=== PATIENT | female | born 1965 | race Caucasian/White ===

== ENCOUNTER 2023-06-15 08:53 | Emergency (ER) | payer BC, SELFPAY ==
[2023-06-15 09:04] VITALS: BP 148/83; PULSE 85; RESP 18; TEMP 36.9; O2SAT 97; BMI 21.9
--- NOTE | 2023-06-15 09:13 | XR_ITS ---
The [address] [address] Patient Name: SCOTTIE VENEGAS MRN: [id number] date: 1965 Sex: F Assigned Patient Location: ER Current Patient Location: ER Accession/Order Number: [id number] Exam Date: 06/15/2023 09:40 Report Date: 06/15/2023 09:56 At the request of: JACQUELINE YANG Procedure: XR forearm RT 2V PROCEDURE: XR forearm RT 2V HISTORY: fall, right forearm pain COMPARISON: None. FINDINGS: BONES:No fracture, acute abnormality, or significant arthropathy. SOFT TISSUES:No visible soft tissue swelling. EFFUSION:None visible. OTHER: Negative. XR/XR forearm RT 2V IMPRESSION: 1. No acute bone abnormality or significant degenerative changes. Electronically authenticated by: JARRELL CHANG Date: 06/15/2023 09:56
--- NOTE | 2023-06-15 09:14 | ED.UPPEXIN1 ---
HPI - Extremity Injury (Upper) General Chief Complaint: Extremity Injury, Upper Stated Complaint: UPPER EXTREMITY INJURY, RIGHT ARM Time Seen by Provider: 06/15/23 09:02 Source: patient Mode of arrival: walk-in Limitations: no limitations History of Present Illness HPI narrative: patient tripped at her home two days ago while going up stairs and fell onto a bent right arm, landing with the right forearm striking the step above. She developed some bruising and had pain. She has been taking motrin 400mg TID but the pain has continued. She is right handed and admitted she has been using the right UE as she normally does. Pain is beginning to migrate to toward the right wrist and right elbow Related Data Previous Rx's Medication Instructions Recorded nabumetone 750 mg tablet 750 mg PO BID PRN pain #20 tabs 06/15/23 Allergies Allergy/AdvReac Type Severity Reaction Status Date / Time ciprofloxacin [From Cipro] Allergy Unknown Verified 06/15/23 09:04 cephalexin [From Keflex] AdvReac Unknown Verified 06/15/23 09:04 Exam Narrative Exam Narrative: Nurses note and vital signs reviewed and patient is not hypoxic. afebrile General: The patient appears well and in no apparent distress. Patient is resting comfortably on cart. GCS = 15. Skin: Warm, dry, no pallor noted. Head: Normocephalic, atraumatic Neck: Full ROM and no cervical spinal tenderness. Cardiovascular: normal peripheral perfusion Respiratory: Patient is in no distress, no accessory muscle use, no wheezing Back: No thoracic tenderness to palpation. Musculoskeletal: tenderness to the mid right forearm with small amount of swelling and ecchymosis noted. She has normal range of motion at the right wrist, right elbow and at the forearm including supination, pronation wrist flexion and extension as well as abduction and abduction of the right wrist. no additional sign of long bone fracture. Pulses at femoral, DP, PT, and popliteal were 2+ bilaterally. Moves all four extremities in all modalities with 5/5 strength. 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 Psychiatric: Cooperative Constitutional Vital Signs, click to edit/add: Last Vital Signs Temp 98.4 F 06/15/23 09:04 Pulse 85 06/15/23 09:04 Resp 18 06/15/23 09:04 BP 148/83 H 06/15/23 09:04 Pulse Ox 97 06/15/23 09:04 O2 Del Method Nasal Cannula 06/15/23 09:04 Course Vital Signs Vital signs: Vital Signs Temperature 98.4 F 06/15/23 09:04 Pulse Rate 85 06/15/23 09:04 Respiratory Rate 18 06/15/23 09:04 Blood Pressure 148/83 H 06/15/23 09:04 Pulse Oximetry 97 06/15/23 09:04 Oxygen Delivery Method Nasal Cannula 06/15/23 09:04 Temperature 98.4 F 06/15/23 09:04 Pulse Rate 85 06/15/23 09:04 Respiratory Rate 18 06/15/23 09:04 Blood Pressure 148/83 H 06/15/23 09:04 Pulse Oximetry 97 06/15/23 09:04 Oxygen Delivery Method Nasal Cannula 06/15/23 09:04 MDM - Extremity Injury (Upper) MDM Narrative Medical decision making narrative: the patient was given oral Tylenol and sent for x-rays of the right forearm. Xrays were without fracture or worrisome finding. Patient informed of negative xrays and given reassurance. ED staff applied an paige wrap t the patient's right forearm. She was given prescription for Relafen Imaging Data xr forearm: Radiologist's impression: Patient Name: SCOTTIE VENEGAS MRN: [id number] date: 1965 Sex: F Assigned Patient Location: ER Current Patient Location: ER Accession/Order Number: [id number] Exam Date: 06/15/2023 09:40 Report Date: 06/15/2023 09:56 At the request of: JACQUELINE YANG Procedure: XR forearm RT 2V PROCEDURE: XR forearm RT 2V HISTORY: fall, right forearm pain COMPARISON: None. FINDINGS: BONES:No fracture, acute abnormality, or significant arthropathy. SOFT TISSUES:No visible soft tissue swelling. EFFUSION:None visible. OTHER: Negative. IMPRESSION: 1. No acute bone abnormality or significant degenerative changes. Electronically authenticated by: JARRELL CHANG Date: 06/15/2023 09:56 Discharge Plan Discharge Chief Complaint: Extremity Injury, Upper Clinical Impression: Contusion of forearm, right Patient Disposition: Home, Self-Care Time of Disposition Decision: 10:09 Mode of Transportation: Private Vehicle Prescriptions / Home Meds: New nabumetone 750 mg tablet 750 mg PO BID PRN (Reason: pain) Qty: 20 0RF Instructions: Contusion in Adults (ED) Stand Alone Forms: Portal Instructions Referrals: Chuck Marquez MD [Primary Care Provider] - 1 week
[2023-06-15] MEDS: ACETAMINOPHEN 500 MG TABLET 1000 MG PO (09:19)
== END 2023-06-15 10:14 | disposition home or self-care (01) ==
PROVIDERS: Emergency Provider Emergency Medicine; PCP Family Medicine
DX: S50.11XA Contusion of right forearm, initial encounter (principal); W10.9XXA Fall (on) (from) unspecified stairs and steps, initial encounter
CPT/HCPCS: 73090; 99283

== ENCOUNTER 2023-08-15 08:15 | Outpatient (OUT) | payer BC, SELFPAY ==
[2023-08-15 10:05] LABS: Alanine Aminotransferase 31 U/L (14-59); Albumin Level 3.6 g/dL (3.4-5.0); Alkaline Phosphatase 87 U/L (46-116); Aspartate Amino Transferase 12 U/L (15-37); Bilirubin Direct 0.1 mg/dL (0.0-0.2); Bilirubin Total 0.4 mg/dL (0.2-1.0); Chol HDL Ratio 3.1; Cholesterol 240 mg/dL (<=200); Globulin 3.6 g/dL; HDL Cholesterol 78 mg/dL (40-60); Total Protein 7.2 g/dL (6.4-8.2); Triglycerides 87 mg/dL (<=150); VLDL CHOLESTEROL 17.4 mg/dL
== END 2023-08-15 08:16 | disposition home or self-care (01) ==
LOC: LAB 08:15
PROVIDERS: PCP Family Medicine; Visit Provider Family Medicine
DX: E78.00 Pure hypercholesterolemia, unspecified (principal)
CPT/HCPCS: 36415; 80061; 80076

== ENCOUNTER 2023-08-28 13:19 | Outpatient (OUT) | payer BC, SELFPAY ==
--- NOTE | 2023-08-28 13:24 | MM_ITS ---
Patient: SCOTTIE VENEGAS Exam Date: 08/28/2023 : 1965 Gender:F Ordering : DR Chuck Marquez . Admission #: [id number] Family : Order #: [id number] CLICK HERE TO VIEW EXAM RADIOLOGY REPORT PROCEDURE: MM TOMOSYNTHESIS DIAGNOSTIC RT, 08/28/2023, 13:22 US BREAST RT LIMITED, 08/28/2023, 13:34 COMPARISON: MG MAMM SCREEN 3D ELIE CAD, 02/06/2023. INDICATIONS: Abnormal Findings On Diagnostic Imaging Of Breast Calculator Name NCI Breast Cancer Risk Assessment Tool 5 Year Breast Cancer Risk 0.90% Lifetime Breast Cancer Risk 4.90% Personal Breast Cancer No Personal Ovarian Cancer No Treatments None Family Cancers None LOCATION: [facility] BREAST COMPOSITION: Scattered areas fibroglandular density. FINDINGS: DIAGNOSTIC CATEGORY 2--BENIGN FINDING. NO CHANGE FROM COMPARISON. The right breast is stable in size and overall fibroglandular configuration. Benign-appearing axillary lymph nodes. Two focal nodules are observed the largest measuring 5 mm in the 12 o'clock anterior breast, ultrasound demonstrates a 5.5 x 3.8 x 2.5 mm stable lesion corresponding to the mammographic abnormality, consistent with a normal-size lymph node. No further evaluation is required. The patient was asked to return to yearly screening mammography with repeat screen due January of 2024 RECOMMENDATIONS: ROUTINE MAMMOGRAM AND CLINICAL EVALUATION IN 12 MONTHS. PLEASE NOTE: A NORMAL MAMMOGRAM DOES NOT EXCLUDE THE POSSIBILITY OF BREAST CANCER. A CLINICALLY SUSPICIOUS PALPABLE LUMP SHOULD BE BIOPSIED. Dictated by: Timothy Krause MD on 08/28/2023 at 13:54 Approved by: Timothy Krause MD on 08/28/2023 at 13:57
--- NOTE | 2023-08-28 13:27 | US_ITS ---
Patient: SCOTTIE VENEGAS Exam Date: 08/28/2023 : 1965 Gender:F Ordering : DR Chuck Marquez . Admission #: [id number] Family : Order #: [id number] CLICK HERE TO VIEW EXAM RADIOLOGY REPORT PROCEDURE: MM TOMOSYNTHESIS DIAGNOSTIC RT, 08/28/2023, 13:22 US BREAST RT LIMITED, 08/28/2023, 13:34 COMPARISON: MG MAMM SCREEN 3D ELIE CAD, 02/06/2023. INDICATIONS: Abnormal Findings On Diagnostic Imaging Of Breast Calculator Name NCI Breast Cancer Risk Assessment Tool 5 Year Breast Cancer Risk 0.90% Lifetime Breast Cancer Risk 4.90% Personal Breast Cancer No Personal Ovarian Cancer No Treatments None Family Cancers None LOCATION: [facility] BREAST COMPOSITION: Scattered areas fibroglandular density. FINDINGS: DIAGNOSTIC CATEGORY 2--BENIGN FINDING. NO CHANGE FROM COMPARISON. The right breast is stable in size and overall fibroglandular configuration. Benign-appearing axillary lymph nodes. Two focal nodules are observed the largest measuring 5 mm in the 12 o'clock anterior breast, ultrasound demonstrates a 5.5 x 3.8 x 2.5 mm stable lesion corresponding to the mammographic abnormality, consistent with a normal-size lymph node. No further evaluation is required. The patient was asked to return to yearly screening mammography with repeat screen due January of 2024 RECOMMENDATIONS: ROUTINE MAMMOGRAM AND CLINICAL EVALUATION IN 12 MONTHS. PLEASE NOTE: A NORMAL MAMMOGRAM DOES NOT EXCLUDE THE POSSIBILITY OF BREAST CANCER. A CLINICALLY SUSPICIOUS PALPABLE LUMP SHOULD BE BIOPSIED. Dictated by: Timothy Krause MD on 08/28/2023 at 13:54 Approved by: Timothy Krause MD on 08/28/2023 at 13:57
== END 2023-08-28 13:20 | disposition home or self-care (01) ==
LOC: MAMMO 13:19
PROVIDERS: PCP Family Medicine; Visit Provider Family Medicine
DX: R92.8 Other abnormal and inconclusive findings on diagnostic imaging of breast (principal)
CPT/HCPCS: 76642; 77065; G0279

== ENCOUNTER 2024-02-28 08:04 | Outpatient (OUT) | payer BC, SELFPAY ==
--- OUTSIDE RECORDS SUMMARY | 2024-02-28 08:20 | XMS_ITS | CCD ---
Author Organization [facility] Care Team Providers Care Financial Examiner Name Role Phone SALVADOR ., DR SHERWOOD Admitting Unavailable HOY ., DR SHERWOOD Attending Unavailable HOY ., DR SHERWOOD Consulting Unavailable HOY ., DR SHERWOOD Primary Care Unavailable HAY ., DR PHILLIPS Attending Unavailable HAY ., DR PHILLIPS Consulting Unavailable HAY ., DR PHILLIPS Admitting Unavailable HOY ., DR SHERWOOD Primary Care Unavailable CARYN, JEREMIAS Consulting Unavailable HOY ., DR SHERWOOD Primary Care Unavailable HOY ., DR SHERWOOD Admitting Unavailable HOY ., DR SHERWOOD Attending Unavailable HOY ., DR SHERWOOD Consulting Unavailable CAYUGA, DR SANTIAGO Stafford Consulting Unavailable HOY ., DR SHERWOOD Primary Care Unavailable HOY ., DR SHERWOOD Admitting Unavailable HOY ., DR SHERWOOD Attending Unavailable HOY ., DR SHERWOOD Consulting Unavailable HOY ., DR SHERWOOD Primary Care Unavailable HOY ., DR PRESLEY Farrellitting Unavailable HOY ., DR SHERWOOD Attending Unavailable HOY ., DR SHERWOOD Consulting Unavailable ZIEBER, DR YONATHAN Mcmullen Consulting Unavailable Allergies Allergy Classification Reported Allergen(s) Allergy Type Date of Onset Reaction(s) Facility (1 source) Cephalexin Drug Allergy [facility] [place] [facility] Repository Problems Problem Classification Problem Date Documented Da te Episodic/Chronic E Codes: Fall (1 source) Unspecified fall, initial encounter; Translations: [UNSPECIFIED FALL INITIAL ENCOUNTER] Onset: 01-24-2023 Episodic Nonspecific chest pain (1 source) Other chest pain; Translations: [OTHER CHEST PAIN] Onset: 01-24-2023 Episodic Other lower respiratory disease (3 sources) Pleurodynia; Translations: [PLEURODYNIA] Onset: 01-23-2023 Episodic Other screening for suspected conditions (not mental disorders or infectious disease) (9 sources) Other abnormal and inconclusive findings on diagnostic imaging of breast; Translations: [Encounter for screening mammogram for malignant neoplasm of breast] Onset: 02-06-2023 Episodic Substance-related disorders (1 source) Nicotine dependence, cigarettes, uncomplicated; Translations: [NICOTINE DEPEND CIGARETTES UNCOMP] Onset: 01-24-2023 Chronic Superficial injury; contusion (1 source) Contusion of left front wall of thorax, initial encounter; Translations: [CONTUS LT FRONT WALL THORAX INITIAL] Onset: 01-24-2023 Episodic Results Test Name Value Interpretation Reference Range Facility US BREAST RIGHT LIMITEDon US BREAST RIGHT LIMITED Patient: SCOTTIE VENEGAS. Exam Date: 02/13/2023 : 1965 Gender:F Ordering : DR PRESLEY FRANCO . Admission #: [id number] Family : Order #: [id number] CLICK HERE TO VIEW EXAM RADIOLOGY REPORT PROCEDURE: ULTRASOUND BREAST RIGHT LIMITED COMPARISON: MG MAMM SCREEN 3D ELIE CAD, 02/06/2023. INDICATIONS: Abnormal findings on diagnostic imaging of breast TECHNIQUE: Breast ultrasound was performed, with evaluation focusing only on specific areas of concern. FINDINGS: DIAGNOSTIC CATEGORY 3--PROBABLY BENIGN FINDING. THE FOLLOWING FINDING(S) HAS A HIGH PROBABILITY OF A BENIGN ETIOLOGY: RIGHT BREAST: Ultrasound evaluation demonstrates 2 small lymph nodes versus nodules within the right breast felt to correspond to the mammographic findings. No overtly suspicious findings. Follow-up mammography and ultrasound of the right breast in 6 months is recommended to document stability and to help establish baseline. If patient has studies at another institution, comparison is recommended. RECOMMENDATIONS: SHORT TERM FOLLOW-UP DIAGNOSTIC MAMMOGRAM RIGHT BREAST IN 6 MONTHS. SHORT TERM FOLLOW-UP ULTRASOUND RIGHT BREAST IN 6 MONTHS. PLEASE NOTE: A NORMAL ULTRASOUND EXAMINATION DOES NOT EXCLUDE THE POSSIBILITY OF BREAST CANCER. A CLINICALLY SUSPICIOUS PALPABLE LUMP SHOULD BE BIOPSIED. Dictated by: Yonathan Salazar M.D. on 02/13/2023 at 12:01 Approved by: Yonathan Salazar M.D. on 02/13/2023 at 12:06 Normal [facility] MG MAMM SCREEN 3D ELIE CADon 02-06-2023 MG MAMM SCREEN 3D ELIE CAD Patient: SCOTTIE VENEGAS. Exam Date: 02/06/2023 : 1965 Gender:F Ordering : DR PRESLEY FRANCO . Admission #: [id number] Family : Order #: [id number] CLICK HERE TO VIEW EXAM RADIOLOGY REPORT PROCEDURE: MAMMOGRAM SCREENING 3D BILATERAL CAD COMPARISON: None. INDICATIONS: Screening mammography Calculator Name NCI Breast Cancer Risk Assessment Tool 5 Year Breast Cancer Risk 0.90% Lifetime Breast Cancer Risk 4.90% Personal Breast Cancer No Personal Ovarian Cancer No Treatments None Family Cancers None LOCATION: [facility] BREAST COMPOSITION: Scattered areas fibroglandular density. FINDINGS: DIAGNOSTIC CATEGORY 0--INCOMPLETE: NEED ADDITIONAL IMAGING EVALUATION. Breasts are medium in size. Scattered benign-appearing calcifications are present. Scattered benign-appearing lymph nodes are present. RIGHT BREAST: 2 focal nodules measuring 5.4 and 3.6 mm seen on the MLO and CC projections, ultrasound follow-up recommended there are no prior comparisons.. LEFT BREAST: No significant suspicious finding. RECOMMENDATIONS: ULTRASOUND: RIGHT BREAST PLEASE NOTE: A NORMAL MAMMOGRAM DOES NOT EXCLUDE THE POSSIBILITY OF BREAST CANCER. A CLINICALLY SUSPICIOUS PALPABLE LUMP SHOULD BE BIOPSIED. Dictated by: Santiago Krause MD on 02/06/2023 at 10:05 Approved by: Santiago Krause MD on 02/06/2023 at 10:08 Normal [facility] INSULINon 2023 Insulin 9.3 uIU/mL Normal 2.6-24.9 [facility] Comment on above: Performed By: #### I NSULIN #### [facility] [place] [facility] [address] [address] [address] Ladi Hernandez OCC BLD IMMUNO SCREENon 01-21 OCCULT BLOOD Negative Normal NEGATIVE [facility] Comment on above: Performed By: #### O BSCRN ####[facility] [place] [facility] [address] [place], [place] [address]AyDr. Ladi Hernandez CBC AUTO DIFFon 02-02-2023 BASO # 0.0 103/ul Normal 0.0-0.1 [facility] Comment on above: Performed By: #### C BC #### [facility] [place] [facility] [address] [address] [address] Ladi Hernandez Basophils/100 WBC (Bld) 0.7 % Normal 0.2-2.0 [facility] Comment on above: Performed By: #### C BC #### [facility] [place] [facility] [address] [address] [address] Ladi Hernandez EO # 0.2 103/ul Normal 0.0-0.7 [facility] Comment on above: Performed By: #### C BC #### [facility] [place] [facility] [address] [place] [address] Dr. Ladi Hernandez Eosinophils/100 WBC (Bld) 3.1 % Normal 0.9-7.0 [facility] Comment on above: Performed By: #### C BC #### [facility] [place] [facility] [address] [place] [address] Dr. Ladi Hernandez Erythrocyte distribution width (RBC) [Ratio] 13.0 % Normal 11.0-15.0 [facility] Comment on above: Performed By: #### C BC #### [facility] [place] [facility] [address] [place] [address] Dr. Ladi Hernandez Hematocrit (Bld) [Volume fraction] 42.5 % Normal 36.0-48.0 [facility] Comment on above: Performed By: #### C BC #### [facility] [place] [facility] [address] [place] [address] Dr. Ladi Hernandez Hemoglobin (Bld) [Mass/Vol] 14.1 g/dL Normal 12.0-16.0 [facility] Comment on above: Performed By: #### C BC #### [facility] [place] [facility] [address] [place] [address] Dr. Ladi Hernandez IG # 0.01 10e3/ul Normal 0.00-0.03 [facility] Comment on above: Performed By: #### C BC #### [facility] [place] [facility] [address] [place] [address] Dr. Ladi Hernandez IG % 0.2 % Normal 0.0-0.5 [facility] Comment on above: Performed By: #### C BC #### [facility] [place] [facility] [address] [place] [address] Dr. Ladi Hernandez LYMPH # 1.8 103/ul Normal 1.2-3.8 [facility] [place] [facility] Comment on above: Performed By: #### C BC #### [facility] [place] [facility] [address] [place] [address] Dr. Ladi Hernandez Lymphocytes/100 WBC (Bld) 32.0 % Normal 20.5-60.0 [facility] Comment on above: Performed By: #### C BC #### [facility] [place] [facility] [address] [place] [address] Dr. Ladi Hernandez MANUAL DIFF REQ NO Normal [facility] Comment on above: Performed By: #### C BC #### [facility] [place] [facility] [address] [place] [address] Dr. Ladi Hernandez MCH (RBC) [Entitic mass] 27.2 pg Normal 26.7-34.0 [facility] Comment on above: Performed By: #### C BC #### [facility] [place] [facility] [address] [place] [address] Dr. Ladi Hernandez MCHC (RBC) [Mass/Vol] 33.2 g/dL Normal 29.9-35.2 [facility] Comment on above: Performed By: #### C BC #### [facility] [place] [facility] [address] [place] [address] Dr. Ladi Hernandez MCV (RBC) [Entitic vol] 81.9 fL Normal 81.0-99.0 [facility] Comment on above: Performed By: #### C BC #### [facility] [place] [facility] [address] [place] [address] Dr. Ladi Hernandez MONO # 0.5 103/ul Normal 0.3-0.8 [facility] Comment on above: Performed By: #### C BC #### [facility] [place] [facility] [address] [place] [address] Dr. Ladi Hernandez Monocytes/100 WBC (Bld) 8.3 % Normal 1.7-12.0 [facility] Comment on above: Performed By: #### C BC #### [facility] [place] [facility] [address] [place] [address] Dr. Ladi Hernandez NEUT # 3.1 103/ul Normal 1.4-6.5 [facility] [place] [facility] Comment on above: Performed By: #### C BC #### [facility] [place] [facility] [address] [place] [address] Dr. Ladi Hernandez Neutrophils/100 WBC (Bld) 55.7 % Normal 43.0-75.0 [facility] Comment on above: Performed By: #### C BC #### [facility] [place] [facility] [address] [address] [address] Ladi Hernandez Platelet mean volume (Bld) [Entitic vol] 10.6 fL Normal 9.5-13.5 [facility] Comment on above: Performed By: #### C BC #### [facility] [place] [facility] [address] [address] [address] Ladi Hernandez PLT 271 103/ul Normal 150-450 [facility] Comment on above: Performed By: #### C BC #### [facility] [place] [facility] [address] [address] [address] Ladi Hernandez RBC 5.19 106/ul Normal 4.20-5.40 [facility] Comment on above: Performed By: #### C BC #### [facility] [place] [facility] [address] [address] [address] Ladi Hernandez WBC 5.6 103/ul Normal 4.0-11.0 [facility] Comment on above: Performed By: #### C BC #### [facility] [place] [facility] [address] [address] [address] Ladi Hernandez FREE THYROXINE INDEX T7on FTI 3.73 Normal 1.30-4.50 [facility] Comment on above: Performed By: #### T 7, LIPID, CMP, TSH #### [facility] [place] [facility] [address] [address] [address] Ladi Hernandez T3U 33.0 % Normal 30.0-39.0 [facility] Comment on above: Performed By: #### T 7, LIPID, CMP, TSH #### [facility] [place] [facility] [address] [address] [address] Ladi Hernandez T4 [Mass/Vol] 11.30 ug/dL Normal 4.80-13.90 [facility] Comment on above: Performed By: #### T 7, LIPID, CMP, TSH #### [facility] [place] [facility] [address] [place] [address] Dr. Ladi Hernandez GLYCOHEMOGLOBIN A1Con 2022 ADA RECOMMENDATION SEE BELOW Normal [facility] Comment on above: Result Comment: ADA RECOMMENDED LIMIT 4.0 - 6.0 ADA THERAPEUTIC TARGET < 7.0 ACTION SUGGESTED > 7.0 Performed By: #### A 1C #### [facility] [place] [facility] [address] [address] [address] Ladi Hernandez Glucose [Mass/Vol] 123 mg/dL Normal [facility] Comment on above: Performed By: #### A 1C #### [facility] [place] [facility] [address] [address] [address] Ladi Hernandez HbA1c (Bld) [Mass fraction] 5.9 % Normal 4.5-6.2 [facility] Comment on above: Performed By: #### A 1C #### [facility] [place] [facility] [address] [address] [address] Ladi Hernandez IRONon 02-02-2023 Iron [Mass/Vol] 87.0 ug/dL Normal 50.0-170.0 [facility] Comment on above: Performed By: #### V ITAD, IRON #### [facility] [place] [facility] [address] [address] [address] Ladi Hernandez LIPID PROFILEon 02-02-2023 CHOL-HDL RATIO NORM SEE BELOW Normal [facility] Comment on above: Result Comment: 3.3 - 4.4 LOW RISK 4.4 - 7.1 AVERAGE RISK 7.1 - 11.0 MODERATE RISK >11.0 HIGH RISK Performed By: #### T 7, LIPID, CMP, TSH ####[facility] [place] [facility] [address] [address]Dr. Ladi Hernandez Cholesterol [Mass/Vol] 305 mg/dL Critically high <=200 [facility] Comment on above: Performed By: #### T 7, LIPID, CMP, TSH ####[facility] [place] [facility] [address] [id number] Ladi Hernandez Cholesterol in HDL [Mass/Vol] 61 mg/dL Critically high 40-60 [facility] [place] [facility] Comment on above: Performed By: #### T 7, LIPID, CMP, TSH ####[facility] [place] [facility] [address] [address]Dr. Ladi Hernandez Cholesterol in LDL [Mass/Vol] 221.6 mg/dL Normal [facility] Comment on above: Performed By: #### T 7, LIPID, CMP, TSH ####[facility] [place] [facility] [address] [address]Dr. Ladi Hernandez Cholesterol.total/Ch olesterol in HDL [Mass ratio] 5.0 {ratio} Normal [facility] [place] [facility] Comment on above: Performed By: #### T 7, LIPID, CMP, TSH ####[facility] [place] [facility] [address] [address]Dr. Ladi Hernandez HDL NORMAL > or = 60 mg/dl - LO W CARDIOVASCULAR RISK <40 mg/dl - HIGH CARDIOVASCULAR RISK Normal [facility] Comment on above: Performed By: #### T 7, LIPID, CMP, TSH ####[facility] [place] [facility] [address] [address]Dr. Ladi Hernandez LDL CALC NORMAL SEE BELOW Normal [facility] Comment on above: Result Comment: <100 mg/dl OPTIMAL 100 - 129 mg/dl NEAR OR ABOVE OPTIMAL 130 - 159 mg/dl BORDERLINE HIGH 160 - 189 mg/dl HIGH >190 mg/dl VERY HIGH Performed By: #### T 7, LIPID, CMP, TSH ####[facility] [place] [facility] [address] [address]Dr. Ladi Hernandez Triglyceride [Mass/Vol] 112 mg/dL Normal <=150 [facility] Comment on above: Performed By: #### T 7, LIPID, CMP, TSH ####[facility] [place] [facility] [address] [id number] Ladi Hernandez VLDL CALC 22.4 mg/dL Normal [facility] Comment on above: Performed By: #### T 7, LIPID, CMP, TSH ####[facility] [place] [facility] [address] [id number] Ladi Hernandez PROF 14(COMP METB)on 023 Albumin [Mass/Vol] 4.1 g/dL Normal 3.4-5.0 [facility] Comment on above: Performed By: #### T 7, LIPID, CMP, TSH #### [facility] [place] [facility] [address] [address] [address] Ladi Hernnadez Albumin/Globulin [Mass ratio] 1.0 {ratio} Normal [facility] Comment on above: Performed By: #### T 7, LIPID, CMP, TSH #### [facility] [place] [facility] [address] [place] [address] Dr. Ladi Hernandez ALP [Catalytic activity/Vol] 110 U/L Normal 46-116 [facility] Comment on above: Performed By: #### T 7, LIPID, CMP, TSH #### [facility] [place] [facility] [address] [place] [address] Dr. Ladi Hernandez ALT [Catalytic activity/Vol] 33 U/L Normal 14-59 [facility] Comment on above: Performed By: #### T 7, LIPID, CMP, TSH #### [facility] [place] [facility] [address] [place] [address] Dr. Ladi Hernandez Anion gap [Moles/Vol] 10.3 mmol/L Normal [facility] Comment on above: Performed By: #### T 7, LIPID, CMP, TSH #### [facility] [place] [facility] [address] [place] [address] Dr. Ladi Hernandez AST [Catalytic activity/Vol] 22 U/L Normal 15-37 [facility] Comment on above: Performed By: #### T 7, LIPID, CMP, TSH #### [facility] [place] [facility] [address] [place] [address] Dr. Ladi Hernandez Bilirubin [Mass/Vol] 0.3 mg/dL Normal 0.2-1.0 [facility] Comment on above: Performed By: #### T 7, LIPID, CMP, TSH #### [facility] [place] [facility] [address] [place] [address] Dr. Ladi Hernandez Calcium [Mass/Vol] 9.8 mg/dL Normal 8.5-10.1 [facility] Comment on above: Performed By: #### T 7, LIPID, CMP, TSH #### [facility] [place] [facility] [address] [place] [address] Dr. Ladi Hernandez Chloride [Moles/Vol] 105 mmol/L Normal 98-107 [facility] [place] [facility] Comment on above: Performed By: #### T 7, LIPID, CMP, TSH #### [facility] [place] [facility] [address] [address] [address] Ladi Hernandez CO2 [Moles/Vol] 29.1 mmol/L Normal 21.0-32.0 [facility] Comment on above: Performed By: #### T 7, LIPID, CMP, TSH #### [facility] [place] [facility] [address] [address] [address] Ladi Hernandez Creatinine [Mass/Vol] 0.62 mg/dL Normal 0.55-1.02 [facility] Comment on above: Performed By: #### T 7, LIPID, CMP, TSH #### [facility] [place] [facility] [address] [address] [address] Ladi Hernandez EGFR-AF AFGHAN >60 Normal >=60 [facility] Comment on above: Performed By: #### T 7, LIPID, CMP, TSH #### [facility] [place] [facility] [address] [address] [address] Ladi Hernandez EGFR-NON AF AFGHAN >60 Normal >=60 [facility] Comment on above: Performed By: #### T 7, LIPID, CMP, TSH #### [facility] [place] [facility] [address] [address] [address] Ladi Hernandez Globulin (S) [Mass/Vol] 4.0 g/dL Normal [facility] Comment on above: Performed By: #### T 7, LIPID, CMP, TSH #### [facility] [place] [facility] [address] [address] [address] Ladi Hernandez Glucose [Mass/Vol] 104 mg/dL Normal 74-106 [facility] Comment on above: Performed By: #### T 7, LIPID, CMP, TSH #### [facility] [place] [facility] [address] [address] [address] Ladi Hernandez Potassium [Moles/Vol] 4.4 mmol/L Normal 3.5-5.1 [facility] Comment on above: Performed By: #### T 7, LIPID, CMP, TSH #### [facility] [place] [facility] [address] [address] [address] Ladi Hernandez Protein [Mass/Vol] 8.1 g/dL Normal 6.4-8.2 [facility] Comment on above: Performed By: #### T 7, LIPID, CMP, TSH #### [facility] [place] [facility] [address] [address] [address] Ladi Hernandez Sodium [Moles/Vol] 140 mmol/L Normal 136-145 [facility] Comment on above: Performed By: #### T 7, LIPID, CMP, TSH #### [facility] [place] [facility] [address] [address] [address] Ladi Hernandez Urea nitrogen [Mass/Vol] 17.0 mg/dL Normal 7.0-18.0 [facility] Comment on above: Performed By: #### T 7, LIPID, CMP, TSH #### [facility] [place] [facility] [address] [address] [address] Ladi Hernandez Urea nitrogen/Creatinine [Mass ratio] 27.4 mg/mg Normal [facility] Comment on above: Performed By: #### T 7, LIPID, CMP, TSH #### [facility] [place] [facility] [address] [address] [address] Ladi Hernandez TSHon 02-02-2023 TSH 1.137 uIU/mL Normal 0.358-3.740 [facility] Comment on above: Performed By: #### T 7, LIPID, CMP, TSH ####[facility] [place] [facility] [address] [address]Dr. Ladi Hernandez VITAMIN D 25 OHon 02-02-2023 VIT D 25-OH 36.1 ng/mL Normal [facility] Comment on above: Performed By: #### V ITAD, IRON #### [facility] [place] [facility] [address] [address] [address] Ladi Hernandez VIT D RANGES SEE BELOW Normal [facility] Comment on above: Result Comment: <20 ng/mL Vit D deficient 20 - <30 ng/mL Vit D insufficient 30 - 100 ng/mL Vit D sufficient >100 ng/mL Potential Toxicity Performed By: #### V ITAD, IRON #### [facility] [place] [facility] [address] [address] [address] CHEST WO CONon 01-23-2023 CT CHEST WO CON EXAMINATION: CT CHES T WO CON HISTORY: Shortness of breath. COMPARISON: None. TECHNIQUE: CT examination of the chest without IV contrast. Coronal and sagittal reformations were performed. Dose reduction techniques were achieved by using automated exposure control and/or adjustment of mA and/or kV according to patient size and/or use of iterative reconstruction technique. FINDINGS: The heart size is normal. There is no pericardial fluid or thickening. There is mild multivessel coronary artery calcifications. There is mild aortic valvular calcification. The unopacified pulmonary arteries are unremarkable. There is mild atheromatous calcification along the thoracic and proximal abdominal aorta. There are mild atheromatous calcifications at the origin of the great vessels off the aortic arch, origin of the right subclavian artery and proximal left subclavian artery. There is paraseptal emphysema. There is moderate biapical pleural parenchymal scarring. There is no consolidation or infiltrate. There is no pleural effusion. The 0.8 cm noncalcified nodular density at the right lung apex most likely is related to the parenchymal scar (series 3 image 13). A lung nodule remains in the differential however is felt to be less likely. There is a 0.2 cm noncalcified nodule posterior right upper chest (series 3 image 20). There are no pathologically enlarged axillary, mediastinal or hilar lymph nodes. The trachea and esophagus are unremarkable. There is a 0.6 cm hypodense nodule within the left lobe of the thyroid gland. There is no acute abnormality within the upper abdomen. There are degenerative changes at the right acromioclavicular and right glenohumeral articulations. There is no acute osseous abnormality. IMPRESSION: There is no acute cardiopulmonary process. Paraseptal emphysema with moderate biapical pleural parenchymal scarring. There is a 0.8 cm noncalcified nodular density at the right lung apex which most likely is related to the parenchymal scar (series 3 image 13). A lung nodule remains in the differential however is felt to be less likely. A follow-up CT examination of the chest in 3 months is recommended. There are no pathologically enlarged axillary, mediastinal or hilar lymph nodes. There is a 0.6 cm hypodense nodule within the left lobe of the thyroid gland. Atherosclerotic disease as described in the body the report. Electronically authenticated by: JEREMIAS RUBIN Date: 2023-01-23 10:38 Normal [facility] Consent for COVID Vaccineon 2021 SARS-CoV-2 (COVID-19) RNA OSMANY+probe Ql (Unsp spec) [id number]#1. 00CD:127 Normal [facility] [place] Consent for COVID Vaccineon 01-09-2021 SARS-CoV-2 (COVID-19) RNA OSMANY+probe Ql (Unsp spec) [id number]#1. 00CD:127 [facility] Consent for Treatmenton 12-22 Consent for Treatment [id number]#1. 00CD:127 [facility] Coding Summary.on 01-06-2021 Coding Summary. CODING DATE: 01/06/2021 FINAL [facility] STATUS: PAYOR: Vj APC DESCRIPTION [employer] - Level 1B ($11-$20) ADMIT DX: REASON FOR VISIT DX: Z23 Encounter for immunization FINAL DX: PRINCIPAL: Z23 Encounter for immunization SECONDARY: PYMT PROC APC STAT DESCRIPTION DOCTOR NAME DATE NOTE: The code number assigned matches the documented diagnosis and / or procedure in the patient's chart. However, the narrative phrase printed from the coding software may appear abbreviated, or result in slightly different terminology. Coded By: Gloria Alves Date Saved: 01/06/2021 06:04 pm [facility] Encounters Encounter Date Encounter Type Care Provider Facility Start: 02-13-2023 End: 02-14-[address] PRESLEY FRANCO . Facility:[facility] Start: 02-08-2023 Encounter for genera l adult medical examination without abnormal findings DR PRESLEY FRANCO . [facility] [place] [facility] Start: 02-06-2023 End: 02-07-[address] PRESLEY FRANCO . Facility:[facility] Start: 2023 End: [address] PRESLEY FRANCO . Facility:[facility] Start: 2023 End: 2023 Encounter for general adult medical examination without abnormal findings DR PRESLEY FRANCO . Facility:[facility] Start: 02-02-2023 End: [address] PRESLEY FRANCO . Facility:[facility] Start: 01-23-2023 End: 01-23-[address] JACQUELINE YANG . Facility:[facility] Payers Date Payer Category Payer Unknown [id number] 2.16.84 [id number] 1965 Unknown [id number] 2.16.84 [id number] 1965 Unknown [id number] 2.16.84 [id number] 1965 Unknown [id number] 2.16.84 [id number] 1965 Unknown [id number] 2.16.84 [id number] 1959 Unknown [id number] Summary Purpose Family History No Family History Records FoundNo Family History Records Found Advance Directives No Advanced Directives Records FoundNo Advanced Directives Records Found Additional Source Comments INFORMATION SOURCE (unrecogn ized section and content) DATE CREATED AUTHOR 04/24/2021 Greg [facility] DATE CREATED AUTHOR AUTHOR'S JENNIFER ATDAVIE 02/18/2023 [facility] FOR RECORDS PERTAINING TO PATIENTS WHO ARE OR HAVE BEEN ENROLLED IN A CHEMICAL DEPENDENCY/SUBSTANCEABUSE PROGRAM, SOME INFORMATION MAY BE OMITTED. This clinical summary was aggregated from multiple sources. Caution should be exercised in using it in the provision of clinical care. This summary normalizes information from multiple sources, and as a consequence, information in this document may materially change the coding, format and clinical context of patient data. In addition, data may be omitted in some cases. CLINICAL DECISIONS SHOULD BE BASED ON THE PRIMARY CLINICAL RECORDS. [facility] [employer] provides no warranty or guarantee of the accuracy or completeness of information in this document.
[2024-02-28 08:23] LABS: Basophils Percent Auto 0.3 % (0.2-2.0); Eosinophils Percent Auto 0.2 % (0.9-7.0); Hematocrit 42.1 % (36.0-48.0); Hemoglobin 13.7 g/dL (12.0-16.0); Immature Granulocytes Abs Auto 0.03 10^3/uL (0.00-0.03); Immature Granulocytes Pct Auto 0.3 % (0.0-0.5); Lymphocytes Absolute Auto 1.3 10^3/uL (1.2-3.8); Lymphocytes Percent Auto 13.3 % (20.5-60.0); Mean Corpuscular HGB Conc 32.5 g/dL (29.9-35.2); Mean Corpuscular Hemoglobin 27.4 pg (26.7-34.0); Mean Corpuscular Volume 84.2 fL (81.0-99.0); Mean Platelet Volume 11.1 fL (9.5-13.5); Monocytes Absolute Auto 0.7 10^3/uL (0.3-0.8); Monocytes Percent Auto 6.6 % (1.7-12.0); Neutrophils Percent Auto 79.3 % (43.0-75.0); Platelet Count 271 10^3/uL (150-450); Red Cell Distribution Width 12.5 % (11.0-15.0); White Blood Count 10.1 10^3/uL (4.0-11.0)
[2024-02-28 08:49] LABS: Estimated Average Glucose 126 mg/dL
[2024-02-28 09:16] LABS: Alanine Aminotransferase 31 U/L (14-59); Albumin Globulin Ratio 1.1; Albumin Level 4.3 g/dL (3.4-5.0); Alkaline Phosphatase 101 U/L (46-116); Anion Gap 13.8; Aspartate Amino Transferase 12 U/L (15-37); BUN Creatinine Ratio 29.1; Bilirubin Total 0.3 mg/dL (0.2-1.0); Carbon Dioxide 26.5 mmol/L (21.0-32.0); Chloride 101 mmol/L (98-107); Cholesterol 336 mg/dL (<=200); Estimated GFR (African America >60 (>=60); Estimated GFR (Non-African Ame >60 (>=60); Free T3 2.52 pg/mL (2.18-3.98); Globulin 3.9 g/dL; Glucose 105 mg/dL (74-106); HDL Cholesterol 67 mg/dL (40-60); Potassium 4.3 mmol/L (3.5-5.1); Sodium 137 mmol/L (136-145); Thyroid Stimulating Hormone 1.255 uIU/mL (0.358-3.740); Total Protein 8.2 g/dL (6.4-8.2); Triglycerides 113 mg/dL (<=150); VLDL CHOLESTEROL 22.6 mg/dL
[2024-02-28 15:46] LABS: Occult Blood Negative
== END 2024-02-28 08:05 | disposition home or self-care (01) ==
LOC: LAB 08:05
PROVIDERS: PCP Family Medicine; Visit Provider Family Medicine
DX: Z00.00 Encounter for general adult medical examination without abnormal findings (principal); E78.5 Hyperlipidemia, unspecified; R73.09 Other abnormal glucose; Z12.12 Encounter for screening for malignant neoplasm of rectum; D64.9 Anemia, unspecified
CPT/HCPCS: 36415; 80053; 80061; 83036; 83540; 84436; 84443; 84481; 85025; G0328

== ENCOUNTER 2024-03-04 07:50 | Outpatient (OUT) | payer BC, SELFPAY ==
--- NOTE | 2024-03-04 | MM_ITS ---
Patient Name: SCOTTIE VENEGAS MR#: [id number] : 1965 Exam Date: 03/04/2024 Ordering Doctor: DR Chuck Marquez . RADIOLOGY REPORT PROCEDURE: MM TOMOSYNTHESIS SCREENING BI COMPARISON: MM TOMOSYNTHESIS DIAGNOSTIC RT, 08/28/2023. MG MAMM SCREEN 3D ELIE CAD, 02/06/2023. INDICATIONS: Screening Calculator Name NCI Breast Cancer Risk Assessment Tool 5 Year Breast Cancer Risk 1.00% Lifetime Breast Cancer Risk 4.70% Personal Breast Cancer No Personal Ovarian Cancer No Treatments None Family Cancers None LOCATION: [facility] BREAST COMPOSITION: There are scattered areas of fibroglandular density. FINDINGS: DIAGNOSTIC CATEGORY 2--BENIGN FINDING. NO CHANGE FROM COMPARISON. Scattered benign-appearing nodules are present. Scattered benign-appearing calcifications are present. RIGHT BREAST: No significant suspicious finding. LEFT BREAST: No significant suspicious finding. RECOMMENDATIONS: ROUTINE MAMMOGRAM AND CLINICAL EVALUATION IN 12 MONTHS. PLEASE NOTE: A NORMAL MAMMOGRAM DOES NOT EXCLUDE THE POSSIBILITY OF BREAST CANCER. A CLINICALLY SUSPICIOUS PALPABLE LUMP SHOULD BE BIOPSIED. Dictated by: Timothy Krause MD on 03/04/2024 at 09:50 Approved by: Timothy Krause MD on 03/04/2024 at 09:51
== END 2024-03-04 07:51 | disposition home or self-care (01) ==
LOC: MAMMO 07:50
PROVIDERS: PCP Family Medicine; Visit Provider Family Medicine
DX: Z12.4 Encounter for screening for malignant neoplasm of cervix (principal); Z12.31 Encounter for screening mammogram for malignant neoplasm of breast
CPT/HCPCS: 77063; 77067; G0145

== ENCOUNTER 2024-03-04 19:54 | Outpatient (REF) | payer BC, SELFPAY ==
--- OUTSIDE RECORDS SUMMARY | 2024-03-04 20:08 | XMS_ITS | CCD ---
Author Organization [facility] Care Team Providers Care Outreach Coordinator Name Role Phone SALVADOR ., DR SHERWOOD [...] Unavailable HOY ., DR SHERWOOD Consulting Unavailable HEDLEY, DR SANTIAGO Stafford Consulting Unavailable HOY ., [...] Facility (1 source) Cephalexin Drug Allergy [facility] Repository Problems Problem Classification Problem Date Documented [...] : DR PRESLEY FRANCO . Admission #: [id number] Family : Order #: [id number] CLICK HERE TO VIEW EXAM RADIOLOGY REPORT [...] Salazar M.D. on 02/13/2023 at 12:06 Normal [facility] MG MAMM SCREEN 3D ELIE CADon 02-06-2023 MG MAMM SCREEN 3D ELIE CAD Patient: SCOTTIE VENEGAS. Exam Date: 02/06/2023 : 1965 Gender:F Ordering : DR PRESLEY FRANCO . Admission #: [id number] Family : Order #: [id number] CLICK HERE TO VIEW EXAM RADIOLOGY REPORT PROCEDURE: MAMMOGRAM SCREENING 3D BILATERAL CAD COMPARISON: None. INDICATIONS: Screening mammography Calculator Name NCI Breast Cancer Risk Assessment Tool 5 Year Breast Cancer Risk 0.90% Lifetime Breast Cancer Risk 4.90% Personal Breast Cancer No Personal Ovarian Cancer No Treatments None Family Cancers None LOCATION: [facility] BREAST COMPOSITION: Scattered areas fibroglandular density. FINDINGS: [...] Krause MD on 02/06/2023 at 10:08 Normal [facility] INSULINon 2023 Insulin 9.3 uIU/mL Normal 2.6-24.9 [facility] Comment on above: Performed By: #### I NSULIN #### [facility] [address] [address] [address] Ladi Hernandez OCC BLD IMMUNO SCREENon 01-21 OCCULT BLOOD Negative Normal NEGATIVE [facility] Comment on above: Performed By: #### O BSCRN ####[facility] [address] [place], [place] [address]ZmDr. Ladi Hernandez CBC AUTO DIFFon 02-02-2023 BASO # 0.0 103/ul Normal 0.0-0.1 [facility] Comment on above: Performed By: #### C BC #### [facility] [address] [address] [address] Ladi Hernandez Basophils/100 WBC (Bld) 0.7 % Normal 0.2-2.0 [facility] Comment on above: Performed By: #### C BC #### [facility] [address] [address] [address] Ladi Hernandez EO # 0.2 103/ul Normal 0.0-0.7 [facility] Comment on above: Performed By: #### C BC #### [facility] [address] [place] [address] Dr. Ladi Hernandez Eosinophils/100 WBC (Bld) 3.1 % Normal 0.9-7.0 [facility] Comment on above: Performed By: #### C BC #### [facility] [address] [place] [address] Dr. Ladi Hernandez Erythrocyte distribution width (RBC) [Ratio] 13.0 % Normal 11.0-15.0 [facility] Comment on above: Performed By: #### C BC #### [facility] [address] [place] [address] Dr. Ladi Hernandez Hematocrit (Bld) [Volume fraction] 42.5 % Normal 36.0-48.0 [facility] Comment on above: Performed By: #### C BC #### [facility] [address] [place] [address] Dr. Ladi Hernandez Hemoglobin (Bld) [Mass/Vol] 14.1 g/dL Normal 12.0-16.0 [facility] Comment on above: Performed By: #### C BC #### [facility] [address] [place] [address] Dr. Ladi Hernandez IG # 0.01 10e3/ul Normal 0.00-0.03 [facility] Comment on above: Performed By: #### C BC #### [facility] [address] [place] [address] Dr. Ladi Hernandez IG % 0.2 % Normal 0.0-0.5 [facility] Comment on above: Performed By: #### C BC #### [facility] [address] [place] [address] Dr. Ladi Hernandez LYMPH # 1.8 103/ul Normal 1.2-3.8 [facility] Comment on above: Performed By: #### C BC #### [facility] [address] [place] [address] Dr. Ladi Hernandez Lymphocytes/100 WBC (Bld) 32.0 % Normal 20.5-60.0 [facility] Comment on above: Performed By: #### C BC #### [facility] [address] [place] [address] Dr. Ladi Hernandez MANUAL DIFF REQ NO Normal [facility] Comment on above: Performed By: #### C BC #### [facility] [address] [place] [address] Dr. Ladi Hernandez MCH (RBC) [Entitic mass] 27.2 pg Normal 26.7-34.0 [facility] Comment on above: Performed By: #### C BC #### [facility] [address] [place] [address] Dr. Ladi Hernandez MCHC (RBC) [Mass/Vol] 33.2 g/dL Normal 29.9-35.2 [facility] Comment on above: Performed By: #### C BC #### [facility] [address] [place] [address] Dr. Ladi Hernandez MCV (RBC) [Entitic vol] 81.9 fL Normal 81.0-99.0 [facility] Comment on above: Performed By: #### C BC #### [facility] [address] [place] [address] Dr. Ladi Hernandez MONO # 0.5 103/ul Normal 0.3-0.8 [facility] Comment on above: Performed By: #### C BC #### [facility] [address] [place] [address] Dr. Ladi Hernandez Monocytes/100 WBC (Bld) 8.3 % Normal 1.7-12.0 [facility] Comment on above: Performed By: #### C BC #### [facility] [address] [place] [address] Dr. Ladi Hernandez NEUT # 3.1 103/ul Normal 1.4-6.5 [facility] Comment on above: Performed By: #### C BC #### [facility] [address] [place] [address] Dr. Ladi Hernandez Neutrophils/100 WBC (Bld) 55.7 % Normal 43.0-75.0 [facility] Comment on above: Performed By: #### C BC #### [facility] [address] [address] [address] Ladi Hernandez Platelet mean volume (Bld) [Entitic vol] 10.6 fL Normal 9.5-13.5 [facility] Comment on above: Performed By: #### C BC #### [facility] [address] [address] [address] Ladi Hernandez PLT 271 103/ul Normal 150-450 [facility] Comment on above: Performed By: #### C BC #### [facility] [address] [address] [address] Ladi Hernandez RBC 5.19 106/ul Normal 4.20-5.40 [facility] Comment on above: Performed By: #### C BC #### [facility] [address] [address] [address] Ladi Hernandez WBC 5.6 103/ul Normal 4.0-11.0 [facility] Comment on above: Performed By: #### C BC #### [facility] [address] [address] [address] Ladi Hernandez FREE THYROXINE INDEX T7on FTI 3.73 Normal 1.30-4.50 [facility] Comment on above: Performed By: #### T 7, LIPID, CMP, TSH #### [facility] [address] [address] [address] Ldai Hernandez T3U 33.0 % Normal 30.0-39.0 [facility] Comment on above: Performed By: #### T 7, LIPID, CMP, TSH #### [facility] [address] [address] [address] Ladi Hernandez T4 [Mass/Vol] 11.30 ug/dL Normal 4.80-13.90 [facility] Comment on above: Performed By: #### T 7, LIPID, CMP, TSH #### [facility] [address] [place] [address] Dr. Ladi Hernandez GLYCOHEMOGLOBIN A1Con 2022 ADA RECOMMENDATION SEE BELOW Normal [facility] Comment on above: Result Comment: ADA RECOMMENDED LIMIT 4.0 - 6.0 ADA THERAPEUTIC TARGET < 7.0 ACTION SUGGESTED > 7.0 Performed By: #### A 1C #### [facility] [address] [address] [address] Ladi Hernandez Glucose [Mass/Vol] 123 mg/dL Normal [facility] Comment on above: Performed By: #### A 1C #### [facility] [address] [address] [address] Ladi Hernandez HbA1c (Bld) [Mass fraction] 5.9 % Normal 4.5-6.2 [facility] Comment on above: Performed By: #### A 1C #### [facility] [address] [address] [address] Laid Hernandez IRONon 02-02-2023 Iron [Mass/Vol] 87.0 ug/dL Normal 50.0-170.0 [facility] Comment on above: Performed By: #### V ITAD, IRON #### [facility] [address] [address] [address] Ladi Hernandez LIPID PROFILEon 02-02-2023 CHOL-HDL RATIO NORM SEE BELOW Normal [facility] Comment on above: Result Comment: 3.3 - 4.4 LOW RISK 4.4 - 7.1 AVERAGE RISK 7.1 - 11.0 MODERATE RISK >11.0 HIGH RISK Performed By: #### T 7, LIPID, CMP, TSH ####[facility] [address] [address]Dr. Ladi Hernandez Cholesterol [Mass/Vol] 305 mg/dL Critically high <=200 [facility] Comment on above: Performed By: #### T 7, LIPID, CMP, TSH ####[facility] [address] [id number]. Ladi Hernandez Cholesterol in HDL [Mass/Vol] 61 mg/dL Critically high 40-60 [facility] Comment on above: Performed By: #### T 7, LIPID, CMP, TSH ####[facility] [address] [address]Dr. Ladi Hernandez Cholesterol in LDL [Mass/Vol] 221.6 mg/dL Normal [facility] Comment on above: Performed By: #### T 7, LIPID, CMP, TSH ####[facility] [address] [address]Dr. Ladi Hernandez Cholesterol.total/Ch olesterol in HDL [Mass ratio] 5.0 {ratio} Normal [facility] Comment on above: Performed By: #### T 7, LIPID, CMP, TSH ####[facility] [address] [address]Dr. Ladi Hernandez HDL NORMAL > or = 60 mg/dl - LO W CARDIOVASCULAR RISK <40 mg/dl - HIGH CARDIOVASCULAR RISK Normal [facility] Comment on above: Performed By: #### T 7, LIPID, CMP, TSH ####[facility] [address] [address]Dr. Ladi Hernandez LDL CALC NORMAL SEE BELOW Normal [facility] Comment on above: Result Comment: <100 mg/dl OPTIMAL 100 - 129 mg/dl NEAR OR ABOVE OPTIMAL 130 - 159 mg/dl BORDERLINE HIGH 160 - 189 mg/dl HIGH >190 mg/dl VERY HIGH Performed By: #### T 7, LIPID, CMP, TSH ####[facility] [address] [address]Dr. Ladi Hernandez Triglyceride [Mass/Vol] 112 mg/dL Normal <=150 [facility] Comment on above: Performed By: #### T 7, LIPID, CMP, TSH ####[facility] [address] [id number]. Ladi Hernandez VLDL CALC 22.4 mg/dL Normal [facility] Comment on above: Performed By: #### T 7, LIPID, CMP, TSH ####[facility] [address] [id number]. Ladi Hernandez PROF 14(COMP METB)on 023 Albumin [Mass/Vol] 4.1 g/dL Normal 3.4-5.0 [facility] Comment on above: Performed By: #### T 7, LIPID, CMP, TSH #### [facility] [address] [address] [address] Ladi Hernandez Albumin/Globulin [Mass ratio] 1.0 {ratio} Normal [facility] Comment on above: Performed By: #### T 7, LIPID, CMP, TSH #### [facility] [address] [place] [address] Dr. Ladi Hernandez ALP [Catalytic activity/Vol] 110 U/L Normal 46-116 [facility] Comment on above: Performed By: #### T 7, LIPID, CMP, TSH #### [facility] [address] [place] [address] Dr. Ladi Hernandez ALT [Catalytic activity/Vol] 33 U/L Normal 14-59 [facility] Comment on above: Performed By: #### T 7, LIPID, CMP, TSH #### [facility] [address] [place] [address] Dr. Ladi Hernandez Anion gap [Moles/Vol] 10.3 mmol/L Normal [facility] Comment on above: Performed By: #### T 7, LIPID, CMP, TSH #### [facility] [address] [place] [address] Dr. Ladi Hernandez AST [Catalytic activity/Vol] 22 U/L Normal 15-37 [facility] Comment on above: Performed By: #### T 7, LIPID, CMP, TSH #### [facility] [address] [place] [address] Dr. Ladi Hernandez Bilirubin [Mass/Vol] 0.3 mg/dL Normal 0.2-1.0 [facility] Comment on above: Performed By: #### T 7, LIPID, CMP, TSH #### [facility] [address] [place] [address] Dr. Ladi Hernandez Calcium [Mass/Vol] 9.8 mg/dL Normal 8.5-10.1 [facility] Comment on above: Performed By: #### T 7, LIPID, CMP, TSH #### [facility] [address] [place] [address] Dr. Ladi Hernandez Chloride [Moles/Vol] 105 mmol/L Normal 98-107 [facility] Comment on above: Performed By: #### T 7, LIPID, CMP, TSH #### [facility] [address] [address] [address] Ladi Hernandez CO2 [Moles/Vol] 29.1 mmol/L Normal 21.0-32.0 [facility] Comment on above: Performed By: #### T 7, LIPID, CMP, TSH #### [facility] [address] [address] [address] Ladi Hernandez Creatinine [Mass/Vol] 0.62 mg/dL Normal 0.55-1.02 [facility] Comment on above: Performed By: #### T 7, LIPID, CMP, TSH #### [facility] [address] [address] [address] Ladi Hernandez EGFR-AF CROATIAN >60 Normal >=60 [facility] Comment on above: Performed By: #### T 7, LIPID, CMP, TSH #### [facility] [address] [address] [address] Ladi Hernandez EGFR-NON AF CROATIAN >60 Normal >=60 [facility] Comment on above: Performed By: #### T 7, LIPID, CMP, TSH #### [facility] [address] [address] [address] Ladi Hernandez Globulin (S) [Mass/Vol] 4.0 g/dL Normal [facility] Comment on above: Performed By: #### T 7, LIPID, CMP, TSH #### [facility] [address] [address] [address] Ladi Hernandez Glucose [Mass/Vol] 104 mg/dL Normal 74-106 [facility] Comment on above: Performed By: #### T 7, LIPID, CMP, TSH #### [facility] [address] [address] [address] Ladi Hernandez Potassium [Moles/Vol] 4.4 mmol/L Normal 3.5-5.1 [facility] Comment on above: Performed By: #### T 7, LIPID, CMP, TSH #### [facility] [address] [address] [address] Ladi Hernandez Protein [Mass/Vol] 8.1 g/dL Normal 6.4-8.2 [facility] Comment on above: Performed By: #### T 7, LIPID, CMP, TSH #### [facility] [address] [address] [address] Ladi Hernandez Sodium [Moles/Vol] 140 mmol/L Normal 136-[address] [facility] Comment on above: Performed By: #### T 7, LIPID, CMP, TSH #### [facility] [address] [address] [address] Ladi Hernandez Urea nitrogen [Mass/Vol] 17.0 mg/dL Normal 7.0-18.0 [facility] Comment on above: Performed By: #### T 7, LIPID, CMP, TSH #### [facility] [address] [address] [address] Ladi Hernandez Urea nitrogen/Creatinine [Mass ratio] 27.4 mg/mg Normal [facility] Comment on above: Performed By: #### T 7, LIPID, CMP, TSH #### [facility] [address] [address] [address] Ladi Hernandez TSHon 02-02-2023 TSH 1.137 uIU/mL Normal 0.358-3.740 [facility] Comment on above: Performed By: #### T 7, LIPID, CMP, TSH ####[facility] [address] [address]Dr. Ladi Hernandez VITAMIN D 25 OHon 02-02-2023 VIT D 25-OH 36.1 ng/mL Normal [facility] Comment on above: Performed By: #### V ITAD, IRON #### [facility] [address] [address] [address] Ladi Hernandez VIT D RANGES SEE BELOW Normal [facility] Comment on above: Result Comment: <20 ng/mL Vit D deficient 20 - <30 ng/mL Vit D insufficient 30 - 100 ng/mL Vit D sufficient >100 ng/mL Potential Toxicity Performed By: #### V ITAD, IRON #### [facility] [address] [address] [address] CHEST WO CONon [...] by: JEREMIAS RUBIN Date: 2023-01-23 10:38 Normal [facility] Consent for COVID Vaccineon 2021 SARS-CoV-2 (COVID-19) RNA OSMANY+probe Ql (Unsp spec) [id number]#1. 00CD:127 Normal [facility] Consent for COVID Vaccineon 01-09-2021 SARS-CoV-2 (COVID-19) RNA OSMANY+probe Ql (Unsp spec) [id number]#1. 00CD:127 [facility] Consent for Treatmenton 12-22 Consent for Treatment [id number]#1. 00CD:127 [facility] Coding Summary.on 01-06-2021 Coding Summary. CODING DATE: 01/06/2021 FINAL [facility] STATUS: PAYOR: Vj APC DESCRIPTION 1492 New [...] Gloria Alves Date Saved: 01/06/2021 06:04 pm [facility] Encounters Encounter Date Encounter Type Care Provider Facility Start: 02-13-2023 End: 02-14-[address] PRESLEY FRANCO . Facility:[facility] Start: 02-08-2023 Encounter for genera l adult medical examination without abnormal findings DR PRESLEY FRANCO . [facility] Start: 02-06-2023 End: 02-07-[address] PRESLEY [...] Facility:[facility] Payers Date Payer Category Payer Unknown [id number] 2.16.84 [id number] 1965 Unknown [id number] 2.16.84 [id number] 1965 Unknown [id number] 2.16.84 [id number] 1965 Unknown [id number] 2.16.84 [id number] 1965 Unknown [id number] 2.16.84 [id number] 1961 Unknown [id number] Summary Purpose Family History No Family History Records FoundNo Family History Records Found Advance Directives No Advanced Directives Records FoundNo Advanced Directives Records Found Additional Source Comments INFORMATION SOURCE (unrecogn ized section and content) DATE CREATED AUTHOR 04/24/2021 Greg [facility] DATE CREATED AUTHOR AUTHOR'S JENNIFER ATDAVIE 02/18/2023 The [facility] FOR RECORDS PERTAINING TO PATIENTS WHO ARE [...] BE BASED ON THE PRIMARY CLINICAL RECORDS. [facility] [employer] provides no warranty or guarantee of the accuracy or completeness of information in this document.
== END 2024-03-04 19:55 | disposition home or self-care (01) ==
LOC: LAB 19:54
PROVIDERS: PCP Family Medicine; Visit Provider Nurse Practitioner Family
DX: Z12.4 Encounter for screening for malignant neoplasm of cervix (principal)
CPT/HCPCS: G0145

== ENCOUNTER 2024-06-03 06:50 | Outpatient (OUT) | payer BC, SELFPAY ==
--- OUTSIDE RECORDS SUMMARY | 2024-06-03 06:54 | XMS_ITS | CCD ---
Author Organization [facility] CliniSyil Care Team Providers Care Kaiako Kohanga Reo Name Role Phone SALVADOR ., DR SHERWOOD Admitting Unavailable HOY ., DR SHERWOOD Attending Unavailable HOY ., DR SHERWOOD Consulting Unavailable HOY ., DR SHERWOOD Primary Care Unavailable HAY ., DR PHILLIPS Attending Unavailable HAY ., DR PHILLIPS Consulting Unavailable HAY ., DR PHILLIPS Admitting Unavailable HOY ., DR SHERWOOD Primary Care Unavailable KNABE, JEREMIAS Consulting Unavailable HOY ., DR SHERWOOD Primary Care Unavailable HOY ., DR SHERWOOD Admitting Unavailable HOY ., DR SHERWOOD Attending Unavailable HOY ., DR SHERWOOD Consulting Unavailable [place], DR SANTIAGO Stafford Consulting Unavailable HOY ., [...] Facility (1 source) Cephalexin Drug Allergy [facility] Repository Problems Problem Classification Problem Date [...] : DR PRESLEY FRANCO . Admission #: [id number] Family : Order #: [id number] CLICK HERE TO VIEW EXAM RADIOLOGY REPORT [...] Salazar M.D. on 02/13/2023 at 12:06 Normal [facility] MG MAMM SCREEN 3D ELIE CADon 02-06-2023 MG MAMM SCREEN 3D ELIE CAD Patient: SCOTTIE VENEGAS. Exam Date: 02/06/2023 : 1965 Gender:F Ordering : DR PRESLEY FRANCO . Admission #: [id number] Family : Order #: [id number] CLICK HERE TO VIEW EXAM RADIOLOGY REPORT PROCEDURE: MAMMOGRAM SCREENING 3D BILATERAL CAD COMPARISON: None. INDICATIONS: Screening mammography Calculator Name NCI Breast Cancer Risk Assessment Tool 5 Year Breast Cancer Risk 0.90% Lifetime Breast Cancer Risk 4.90% Personal Breast Cancer No Personal Ovarian Cancer No Treatments None Family Cancers None LOCATION: [facility] BREAST COMPOSITION: Scattered areas fibroglandular density. [...] Krause MD on 02/06/2023 at 10:08 Normal [facility] INSULINon 2023 Insulin 9.3 uIU/mL Normal 2.6-24.9 [facility] Comment on above: Performed By: #### I NSULIN #### [facility] [address] [place] [address] Dr. Ladi Hernandez OCC BLD IMMUNO SCREENon 01-21 OCCULT BLOOD Negative Normal NEGATIVE [facility] Comment on above: Performed By: #### O BSCRN ####[facility] [address] [address]Dr. Ladi Hernandez CBC AUTO DIFFon 02-02-2023 BASO # 0.0 103/ul Normal 0.0-0.1 [facility] Comment on above: Performed By: #### C BC #### [facility] [address] [place] [address] Dr. Ladi Hernandez Basophils/100 WBC (Bld) 0.7 % Normal 0.2-2.0 [facility] Comment on above: Performed By: #### C BC #### [facility] [address] [place] [address] Dr. Ladi Hernandez EO # 0.2 103/ul Normal 0.0-0.7 [facility] Comment on above: Performed By: #### C BC #### [facility] [address] [place] [address] Dr. Ladi Hernandez Eosinophils/100 WBC (Bld) 3.1 % Normal 0.9-7.0 [facility] Comment on above: Performed By: #### C BC #### [facility] [address] [place] [address] Dr. Ladi Hernandez Erythrocyte distribution width (RBC) [Ratio] 13.0 % Normal 11.0-15.0 [facility] Comment on above: Performed By: #### C BC #### [facility] [address] [place] [address] Dr. Ladi Hernandez Hematocrit (Bld) [Volume fraction] 42.5 % Normal 36.0-48.0 [facility] Comment on above: Performed By: #### C BC #### [facility] [address] [place] [address] Dr. Ladi Hernandez Hemoglobin (Bld) [Mass/Vol] 14.1 g/dL Normal 12.0-16.0 [facility] Comment on above: Performed By: #### C BC #### [facility] [address] [place] [address] Dr. Ladi Hernandez IG # 0.01 10e3/ul Normal 0.00-0.03 [facility] Comment on above: Performed By: #### C BC #### [facility] [address] [place] [address] Dr. Ladi Hernandez IG % 0.2 % Normal 0.0-0.5 [facility] Comment on above: Performed By: #### C BC #### [facility] [address] [place] [address] Dr. Ladi Hernandez LYMPH # 1.8 103/ul Normal 1.2-3.8 [facility] Comment on above: Performed By: #### C BC #### [facility] [address] [place] [address] Dr. Ladi Hernandez Lymphocytes/100 WBC (Bld) 32.0 % Normal 20.5-60.0 [facility] Comment on above: Performed By: #### C BC #### [facility] [address] [place] [address] Dr. Ladi Hernandez MANUAL DIFF REQ NO Normal [facility] Comment on above: Performed By: #### C BC #### [facility] [address] [place] [address] Dr. Ladi Hernandez MCH (RBC) [Entitic mass] 27.2 pg Normal 26.7-34.0 [facility] Comment on above: Performed By: #### C BC #### [facility] [address] [place] [address] Dr. Ladi Hernandez MCHC (RBC) [Mass/Vol] 33.2 g/dL Normal 29.9-35.2 [facility] Comment on above: Performed By: #### C BC #### [facility] [address] [place] [address] Dr. Ladi Hernandez MCV (RBC) [Entitic vol] 81.9 fL Normal 81.0-99.0 [facility] Comment on above: Performed By: #### C BC #### [facility] [address] [place] [address] Dr. Ladi Hernandez MONO # 0.5 103/ul Normal 0.3-0.8 [facility] Comment on above: Performed By: #### C BC #### [facility] [address] [place] [address] Dr. Ladi Hernandez Monocytes/100 WBC (Bld) 8.3 % Normal 1.7-12.0 [facility] Comment on above: Performed By: #### C BC #### [facility] [address] [place] [address] Dr. Ladi Hernandez NEUT # 3.1 103/ul Normal 1.4-6.5 [facility] Comment on above: Performed By: #### C BC #### [facility] [address] [place] [address] Dr. Ladi Hernandez Neutrophils/100 WBC (Bld) 55.7 % Normal 43.0-75.0 [facility] Comment on above: Performed By: #### C BC #### [facility] [address] [address] [address] Ladi Hernandez Platelet mean volume (Bld) [Entitic vol] 10.6 fL Normal 9.5-13.5 [facility] Comment on above: Performed By: #### C BC #### [facility] [address] [address] [address] Ladi Hernandez PLT 271 103/ul Normal 150-450 [facility] Comment on above: Performed By: #### C BC #### [facility] [address] [address] [address] Ladi Hernandez RBC 5.19 106/ul Normal 4.20-5.40 [facility] Comment on above: Performed By: #### C BC #### [facility] [address] [address] [address] Ladi Hernandez WBC 5.6 103/ul Normal 4.0-11.0 [facility] Comment on above: Performed By: #### C BC #### [facility] [address] [address] [address] Ladi Hernandez FREE THYROXINE INDEX T7on FTI 3.73 Normal 1.30-4.50 [facility] Comment on above: Performed By: #### T 7, LIPID, CMP, TSH #### [facility] [address] [address] [address] Ladi Hernandez T3U 33.0 % Normal 30.0-39.0 [facility] Comment on above: Performed By: #### T 7, LIPID, CMP, TSH #### [facility] [address] [address] [address] Ladi Hernandez T4 [Mass/Vol] 11.30 ug/dL Normal 4.80-13.90 [facility] Comment on above: Performed By: #### T 7, LIPID, CMP, TSH #### [facility] [address] [address] [address] Ladi Hernandez GLYCOHEMOGLOBIN A1Con 2022 ADA RECOMMENDATION SEE BELOW Normal [facility] Comment on above: Result Comment: ADA RECOMMENDED LIMIT 4.0 - 6.0 ADA THERAPEUTIC TARGET < 7.0 ACTION SUGGESTED > 7.0 Performed By: #### A 1C #### [facility] [address] [address] [address] Ladi Hernandez Glucose [Mass/Vol] 123 mg/dL Normal [facility] Comment on above: Performed By: #### A 1C #### [facility] [address] [address] [address] Ladi Hernandez HbA1c (Bld) [Mass fraction] 5.9 % Normal 4.5-6.2 [facility] Comment on above: Performed By: #### A 1C #### [facility] [address] [address] [address] Ladi Hernandez IRONon 02-02-2023 Iron [Mass/Vol] 87.0 ug/dL Normal 50.0-170.0 [facility] Comment on above: Performed By: #### V ITAD, IRON #### [facility] [address] [address] [address] Ladi Hernandez LIPID PROFILEon 02-02-2023 CHOL-HDL RATIO NORM SEE BELOW Normal [facility] Comment on above: Result Comment: 3.3 - 4.4 LOW RISK 4.4 - 7.1 AVERAGE RISK 7.1 - 11.0 MODERATE RISK >11.0 HIGH RISK Performed By: #### T 7, LIPID, CMP, TSH ####[facility] [address] [id number]. Ladi Hernandez Cholesterol [Mass/Vol] 305 mg/dL Critically high <=200 [facility] Comment on above: Performed By: #### T 7, LIPID, CMP, TSH ####[facility] [address] [id number]. Ladi Hernandez Cholesterol in HDL [Mass/Vol] 61 mg/dL Critically high 40-60 [facility] Comment on above: Performed By: #### T 7, LIPID, CMP, TSH ####[facility] [address] [id number]. Ladi Hernandez Cholesterol in LDL [Mass/Vol] 221.6 mg/dL Normal [facility] Comment on above: Performed By: #### T 7, LIPID, CMP, TSH ####[facility] [address] [id number]. Ladi Hernandez Cholesterol.total/Ch olesterol in HDL [Mass ratio] 5.0 {ratio} Normal [facility] Comment on above: Performed By: #### T 7, LIPID, CMP, TSH ####[facility] [address] [place], [place] [address]Mt. Ladi Hernandez HDL NORMAL > or = 60 mg/dl - LO W CARDIOVASCULAR RISK <40 mg/dl - HIGH CARDIOVASCULAR RISK Normal [facility] Comment on above: Performed By: #### T 7, LIPID, CMP, TSH ####[facility] [address] [id number]. Ladi Hernandez LDL CALC NORMAL SEE BELOW Normal [facility] Comment on above: Result Comment: <100 mg/dl OPTIMAL 100 - 129 mg/dl NEAR OR ABOVE OPTIMAL 130 - 159 mg/dl BORDERLINE HIGH 160 - 189 mg/dl HIGH >190 mg/dl VERY HIGH Performed By: #### T 7, LIPID, CMP, TSH ####[facility] [address] [id number]. Ladi Hernandez Triglyceride [Mass/Vol] 112 mg/dL Normal <=150 [facility] Comment on above: Performed By: #### T 7, LIPID, CMP, TSH ####[facility] [address] [place] [id number]. Ladi Hernandez VLDL CALC 22.4 mg/dL Normal [facility] Comment on above: Performed By: #### T 7, LIPID, CMP, TSH ####[facility] [address] [id number]. Ladi Hernandez PROF 14(COMP METB)on 023 Albumin [Mass/Vol] 4.1 g/dL Normal 3.4-5.0 [facility] Comment on above: Performed By: #### T 7, LIPID, CMP, TSH #### [facility] [address] [address] [address] Ladi Hernandez Albumin/Globulin [Mass ratio] 1.0 {ratio} Normal [facility] Comment on above: Performed By: #### T 7, LIPID, CMP, TSH #### [facility] [address] [address] [address] Ladi Hernandez ALP [Catalytic activity/Vol] 110 U/L Normal 46-116 [facility] Comment on above: Performed By: #### T 7, LIPID, CMP, TSH #### [facility] [address] [address] [address] Ladi Hernandez ALT [Catalytic activity/Vol] 33 U/L Normal 14-59 [facility] Comment on above: Performed By: #### T 7, LIPID, CMP, TSH #### [facility] [address] [place] [address] Dr. Ladi Hernandez Anion gap [Moles/Vol] 10.3 mmol/L Normal [facility] Comment on above: Performed By: #### T 7, LIPID, CMP, TSH #### [facility] [address] [place] [address] Dr. Ladi Hernandez AST [Catalytic activity/Vol] 22 U/L Normal 15-37 [facility] Comment on above: Performed By: #### T 7, LIPID, CMP, TSH #### [facility] [address] [address] [address] Ladi Hernandez Bilirubin [Mass/Vol] 0.3 mg/dL Normal 0.2-1.0 [facility] Comment on above: Performed By: #### T 7, LIPID, CMP, TSH #### [facility] [address] [address] [address] Ladi Hernandez Calcium [Mass/Vol] 9.8 mg/dL Normal 8.5-10.1 [facility] Comment on above: Performed By: #### T 7, LIPID, CMP, TSH #### [facility] [address] [place] [address] Dr. Ladi Hernandez Chloride [Moles/Vol] 105 mmol/L Normal 98-107 [facility] Comment on above: Performed By: #### T 7, LIPID, CMP, TSH #### [facility] [address] [address] [address] Ladi Hernandez CO2 [Moles/Vol] 29.1 mmol/L Normal 21.0-32.0 [facility] Comment on above: Performed By: #### T 7, LIPID, CMP, TSH #### [facility] [address] [address] [address] Ladi Hernandez Creatinine [Mass/Vol] 0.62 mg/dL Normal 0.55-1.02 [facility] Comment on above: Performed By: #### T 7, LIPID, CMP, TSH #### [facility] [address] [place] [address] Dr. Ladi Hernandez EGFR-AF ETHIOPIAN >60 Normal >=60 [facility] Comment on above: Performed By: #### T 7, LIPID, CMP, TSH #### [facility] [address] [address] [address] Ladi Hernandez EGFR-NON AF ETHIOPIAN >60 Normal >=60 [facility] Comment on above: Performed By: #### T 7, LIPID, CMP, TSH #### [facility] [address] [place] [address] Dr. Ladi Hernandez Globulin (S) [Mass/Vol] 4.0 g/dL Normal [facility] Comment on above: Performed By: #### T 7, LIPID, CMP, TSH #### [facility] [address] [address] [address] Ladi Hernandez Glucose [Mass/Vol] 104 mg/dL Normal 74-106 [facility] Comment on above: Performed By: #### T 7, LIPID, CMP, TSH #### [facility] [address] [address] [address] Ladi Hernandez Potassium [Moles/Vol] 4.4 mmol/L Normal 3.5-5.1 [facility] Comment on above: Performed By: #### T 7, LIPID, CMP, TSH #### [facility] [address] [place] [address] Dr. Ladi Hernandez Protein [Mass/Vol] 8.1 g/dL Normal 6.4-8.2 [facility] Comment on above: Performed By: #### T 7, LIPID, CMP, TSH #### [facility] [address] [address] [address] Ladi Hernandez Sodium [Moles/Vol] 140 mmol/L Normal 136-145 [facility] Comment on above: Performed By: #### T 7, LIPID, CMP, TSH #### [facility] [address] [address] [address] Ladi Hernandez Urea nitrogen [Mass/Vol] 17.0 mg/dL Normal 7.0-18.0 [facility] Comment on above: Performed By: #### T 7, LIPID, CMP, TSH #### [facility] [address] [address] [address] Ladi Hernandez Urea nitrogen/Creatinine [Mass ratio] 27.4 mg/mg Normal [facility] Comment on above: Performed By: #### T 7, LIPID, CMP, TSH #### [facility] [address] [address] [address] Ladi Hernandez TSHon 02-02-2023 TSH 1.137 uIU/mL Normal 0.358-3.740 [facility] Comment on above: Performed By: #### T 7, LIPID, CMP, TSH ####[facility] [address] [address]. Ladi Hernandez VITAMIN D 25 OHon 02-02-2023 VIT D 25-OH 36.1 ng/mL Normal [facility] Comment on above: Performed By: #### V ITAD, IRON #### [facility] [address] [address] [address] Ladi Hernandez VIT D RANGES SEE BELOW Normal [facility] Comment on above: Result Comment: <20 ng/mL Vit D deficient 20 - <30 ng/mL Vit D insufficient 30 - 100 ng/mL Vit D sufficient >100 ng/mL Potential Toxicity Performed By: #### V ITAD, IRON #### [facility] [address] [address] [address] CHEST WO CONon [...] by: JEREMIAS RUBIN Date: 2023-01-23 10:38 Normal [facility] Consent for COVID Vaccineon 2021 SARS-CoV-2 (COVID-19) RNA OSMANY+probe Ql (Unsp spec) [id number]. 00CD:127 Normal [facility] Consent for COVID Vaccineon 01-09-2021 SARS-CoV-2 (COVID-19) RNA OSMANY+probe Ql (Unsp spec) [id number]. 00CD:127 Normal [facility] Consent for Treatmenton 12-22 Consent for Treatment [id number]. 00CD:127 [facility] Coding Summary.on 01-06-2021 Coding Summary. CODING DATE: 01/06/[address] [facility] STATUS: PAYOR: Vj APC DESCRIPTION 1492 New [...] Gloria Alves Date Saved: 01/06/2021 06:04 pm [facility] Encounters Encounter Date Encounter Type Care Provider Facility Start: 02-13-2023 End: 02-14-[address] PRESLEY FRANCO . Facility:[facility] Start: 02-08-2023 Encounter for genera l adult medical examination without abnormal findings DR PRESLEY FRANCO . [facility] Start: 02-06-2023 End: 02-07-[address] [...] Facility:[facility] Payers Date Payer Category Payer Unknown [id number] 2.16.84 [id number] 1965 Unknown [id number] 2.16.84 [id number] 1965 Unknown [id number] 2.16.84 [id number] 1965 Unknown [id number] 2.16.84 [id number] 1965 Unknown [id number] 2.16.84 [id number] 1961 Unknown [id number] Summary Purpose Family History No Family History Records FoundNo Family History Records Found Advance Directives No Advanced Directives Records FoundNo Advanced Directives Records Found Additional Source Comments INFORMATION SOURCE (unrecogn ized section and content) DATE CREATED AUTHOR 04/24/2021 [facility] DATE CREATED AUTHOR AUTHOR'S JENNIFER ZAVALA 02/18/2023 [facility] FOR RECORDS PERTAINING TO PATIENTS WHO ARE [...] BE BASED ON THE PRIMARY CLINICAL RECORDS. [facility] [employer] provides no warranty or guarantee of the accuracy or completeness of information in this document.
[2024-06-03 07:27] LABS: Alanine Aminotransferase 31 U/L (14-59); Albumin Globulin Ratio 1.2; Albumin Level 4.1 g/dL (3.4-5.0); Alkaline Phosphatase 99 U/L (46-116); Aspartate Amino Transferase 12 U/L (15-37); Bilirubin Direct 0.1 mg/dL (0.0-0.2); Bilirubin Total 0.6 mg/dL (0.2-1.0); Chol HDL Ratio 3.2; Cholesterol 232 mg/dL (<=200); Globulin 3.3 g/dL; HDL Cholesterol 73 mg/dL (40-60); Total Protein 7.4 g/dL (6.4-8.2); Triglycerides 80 mg/dL (<=150)
== END 2024-06-03 06:51 | disposition home or self-care (01) ==
LOC: LAB 06:52
PROVIDERS: PCP Family Medicine; Visit Provider Family Medicine
DX: E78.00 Pure hypercholesterolemia, unspecified (principal)
CPT/HCPCS: 36415; 80061; 80076

== ENCOUNTER 2025-01-29 06:48 | Outpatient (OUT) | payer BC, SELFPAY ==
--- OUTSIDE RECORDS SUMMARY | 2025-01-29 06:52 | XMS_ITS | CCD ---
Author Organization [facility] Clini[facility] Care Team Providers Care Charge Master Coordinator Name Role Phone SALVADOR ., DR [...] Unavailable HOY ., DR SHERWOOD Consulting Unavailable [place], DR SANTIAGO Stafford Consulting Unavailable HOY ., [...] Facility (1 source) Cephalexin Drug Allergy The Repository Problems Problem Classification Problem Date Documented [...] : DR PRESLEY FRANCO . Admission #: [id number] Family : Order #: [id number] CLICK HERE TO VIEW EXAM RADIOLOGY REPORT [...] Salazar M.D. on 02/13/2023 at 12:06 Normal [facility] MG MAMM SCREEN 3D ELIE CADon 02-06-2023 MG MAMM SCREEN 3D ELIE CAD Patient: SCOTTIE VENEGAS. Exam Date: 02/06/2023 : 1965 Gender:F Ordering : DR PRESLEY FRANCO . Admission #: [id number] Family : Order #: [id number] CLICK HERE TO VIEW EXAM RADIOLOGY REPORT PROCEDURE: MAMMOGRAM SCREENING 3D BILATERAL CAD COMPARISON: None. INDICATIONS: Screening mammography Calculator Name NCI Breast Cancer Risk Assessment Tool 5 Year Breast Cancer Risk 0.90% Lifetime Breast Cancer Risk 4.90% Personal Breast Cancer No Personal Ovarian Cancer No Treatments None Family Cancers None LOCATION: The BREAST COMPOSITION: Scattered areas fibroglandular density. FINDINGS: [...] MD on 02/06/2023 at 10:08 Normal The INSULINon 2023 Insulin 9.3 uIU/mL Normal 2.6-24.9 [facility] Comment on above: Performed By: #### I NSULIN #### Laboratory [address] [place] [address] Dr. Ladi Hernandez OCC BLD IMMUNO SCREENon 01-21 OCCULT BLOOD Negative Normal NEGATIVE [facility] Comment on above: Performed By: #### O BSCRN #### [id number] [place] [address]Dr. Ladi Hernandez CBC AUTO DIFFon 02-02-2023 BASO # 0.0 103/ul Normal 0.0-0.1 [facility] Comment on above: Performed By: #### C BC #### Laboratory [address] [place] [address] Dr. Ladi Hernandez Basophils/100 WBC (Bld) 0.7 % Normal 0.2-2.0 [facility] Comment on above: Performed By: #### C BC #### Laboratory [address] [place] [address] Dr. Ladi Hernandez EO # 0.2 103/ul Normal 0.0-0.7 [facility] Comment on above: Performed By: #### C BC #### Laboratory [address] [place] [address] Dr. Ladi Hernandez Eosinophils/100 WBC (Bld) 3.1 % Normal 0.9-7.0 [facility] Comment on above: Performed By: #### C BC #### Laboratory [address] [place] [address] Dr. Ladi Hernandez Erythrocyte distribution width (RBC) [Ratio] 13.0 % Normal 11.0-15.0 [facility] Comment on above: Performed By: #### C BC #### Laboratory [address] [place] [address] Dr. Ladi Hernandez Hematocrit (Bld) [Volume fraction] 42.5 % Normal 36.0-48.0 [facility] Comment on above: Performed By: #### C BC #### Laboratory [address] [place] [address] Dr. Ladi Hernandez Hemoglobin (Bld) [Mass/Vol] 14.1 g/dL Normal 12.0-16.0 [facility] Comment on above: Performed By: #### C BC #### Laboratory [address] [place] [address] Dr. Ladi Hernandez IG # 0.01 10e3/ul Normal 0.00-0.03 [facility] Comment on above: Performed By: #### C BC #### Laboratory [address] [place] [address] Dr. Ladi Hernandez IG % 0.2 % Normal 0.0-0.5 The Comment on above: Performed By: #### C BC #### Laboratory [address] [place] [address] Dr. Ladi Hernandez LYMPH # 1.8 103/ul Normal 1.2-3.8 [facility] Comment on above: Performed By: #### C BC #### Laboratory [address] [place] [address] Dr. Ladi Hernandez Lymphocytes/100 WBC (Bld) 32.0 % Normal 20.5-60.0 [facility] Comment on above: Performed By: #### C BC #### Laboratory [address] [place] [address] Dr. Ladi Hernandez MANUAL DIFF REQ NO Normal [facility] Comment on above: Performed By: #### C BC #### Laboratory [address] [place] [address] Dr. Ladi Hernandez MCH (RBC) [Entitic mass] 27.2 pg Normal 26.7-34.0 [facility] Comment on above: Performed By: #### C BC #### Laboratory [address] [place] [address] Dr. Ladi Hernandez MCHC (RBC) [Mass/Vol] 33.2 g/dL Normal 29.9-35.2 [facility] Comment on above: Performed By: #### C BC #### Laboratory [address] [place] [address] Dr. Ladi Hernandez MCV (RBC) [Entitic vol] 81.9 fL Normal 81.0-99.0 [facility] Comment on above: Performed By: #### C BC #### Laboratory [address] [place] [address] Dr. Ladi Hernandez MONO # 0.5 103/ul Normal 0.3-0.8 [facility] Comment on above: Performed By: #### C BC #### Laboratory [address] [place] [address] Dr. Ladi Hernandez Monocytes/100 WBC (Bld) 8.3 % Normal 1.7-12.0 [facility] Comment on above: Performed By: #### C BC #### Laboratory [address] [place] [address] Dr. Ladi Hernandez NEUT # 3.1 103/ul Normal 1.4-6.5 [facility] Comment on above: Performed By: #### C BC #### Laboratory [address] [place] [address] Dr. Ladi Hernandez Neutrophils/100 WBC (Bld) 55.7 % Normal 43.0-75.0 [facility] Comment on above: Performed By: #### C BC #### Laboratory [address] [address] [address] Ladi Hernandez Platelet mean volume (Bld) [Entitic vol] 10.6 fL Normal 9.5-13.5 [facility] Comment on above: Performed By: #### C BC #### Laboratory [address] [place] [address] [address] Ladi Hernandez PLT 271 103/ul Normal 150-450 The Comment on above: Performed By: #### C BC #### Laboratory [address] [place] [address] [address] Ladi Hernandez RBC 5.19 106/ul Normal 4.20-5.40 [facility] Comment on above: Performed By: #### C BC #### Laboratory [address] [place] [address] [address] Ladi Hernandez WBC 5.6 103/ul Normal 4.0-11.0 [facility] Comment on above: Performed By: #### C BC #### Laboratory [address] [place] [address] [address] Ladi Hernandez FREE THYROXINE INDEX T7on FTI 3.73 Normal 1.30-4.50 [facility] Comment on above: Performed By: #### T 7, LIPID, CMP, TSH #### Laboratory [address] [place] [address] [address] Ldai Hernandez T3U 33.0 % Normal 30.0-39.0 [facility] Comment on above: Performed By: #### T 7, LIPID, CMP, TSH #### Laboratory [address] [place] [address] [address] Ladi Hernandez T4 [Mass/Vol] 11.30 ug/dL Normal 4.80-13.90 [facility] Comment on above: Performed By: #### T 7, LIPID, CMP, TSH #### Laboratory [address] [address] [address] Ladi Hernandez GLYCOHEMOGLOBIN A1Con 2022 ADA RECOMMENDATION SEE BELOW Normal [facility] Comment on above: Result Comment: ADA RECOMMENDED LIMIT 4.0 - 6.0 ADA THERAPEUTIC TARGET < 7.0 ACTION SUGGESTED > 7.0 Performed By: #### A 1C #### Laboratory [address] [address] [address] Ladi Hernandez Glucose [Mass/Vol] 123 mg/dL Normal The [facility] Comment on above: Performed By: #### A 1C #### Laboratory [address] [address] [address] Ladi Hernandez HbA1c (Bld) [Mass fraction] 5.9 % Normal 4.5-6.2 [facility] Comment on above: Performed By: #### A 1C #### Laboratory [address] [address] [address] Ladi Hernandez IRONon 02-02-2023 Iron [Mass/Vol] 87.0 ug/dL Normal 50.0-170.[address] [facility] Comment on above: Performed By: #### V ITAD, IRON #### Laboratory [address] [address] [address] Ladi Hernandez LIPID PROFILEon 02-02-2023 CHOL-HDL RATIO NORM SEE BELOW Normal [facility] Comment on above: Result Comment: 3.3 - 4.4 LOW RISK 4.4 - 7.1 AVERAGE RISK 7.1 - 11.0 MODERATE RISK >11.0 HIGH RISK Performed By: #### T 7, LIPID, CMP, TSH #### [id number] [place] [id number]. Ladi Hernandez Cholesterol [Mass/Vol] 305 mg/dL Critically high <=200 The Comment on above: Performed By: #### T 7, LIPID, CMP, TSH #### [id number] [place] [id number]. Ladi Hernandez Cholesterol in HDL [Mass/Vol] 61 mg/dL Critically high 40-60 [facility] Comment on above: Performed By: #### T 7, LIPID, CMP, TSH #### [id number] [place] [id number]. Ladi Hernandez Cholesterol in LDL [Mass/Vol] 221.6 mg/dL Normal The Comment on above: Performed By: #### T 7, LIPID, CMP, TSH #### [id number] [place] [id number]. Ladi Hernandez Cholesterol.total/Ch olesterol in HDL [Mass ratio] 5.0 {ratio} Normal The Comment on above: Performed By: #### T 7, LIPID, CMP, TSH #### [id number] [place], [place] [address]Aj. Ladi Hernandez HDL NORMAL > or = 60 mg/dl - LO W CARDIOVASCULAR RISK <40 mg/dl - HIGH CARDIOVASCULAR RISK Normal [facility] Comment on above: Performed By: #### T 7, LIPID, CMP, TSH #### [id number] [place] [id number]. Ladi Hernandez LDL CALC NORMAL SEE BELOW Normal [facility] Comment on above: Result Comment: <100 mg/dl OPTIMAL 100 - 129 mg/dl NEAR OR ABOVE OPTIMAL 130 - 159 mg/dl BORDERLINE HIGH 160 - 189 mg/dl HIGH >190 mg/dl VERY HIGH Performed By: #### T 7, LIPID, CMP, TSH #### [id number] [place] [id number]. Ladi Hernandez Triglyceride [Mass/Vol] 112 mg/dL Normal <=150 The Comment on above: Performed By: #### T 7, LIPID, CMP, TSH #### [id number] [place] [id number]. Ladi Hernanedz VLDL CALC 22.4 mg/dL Normal The Comment on above: Performed By: #### T 7, LIPID, CMP, TSH #### [id number] [place] [id number]. Ladi Hernandez PROF 14(COMP METB)on 023 Albumin [Mass/Vol] 4.1 g/dL Normal 3.4-5.0 [place] Comment on above: Performed By: #### T 7, LIPID, CMP, TSH #### Laboratory [address] [address] [address] Ladi Hernandez Albumin/Globulin [Mass ratio] 1.0 {ratio} Normal [facility] Comment on above: Performed By: #### T 7, LIPID, CMP, TSH #### Laboratory [address] [place] [address] [address] Ladi Hernandez ALP [Catalytic activity/Vol] 110 U/L Normal 46-116 [facility] Comment on above: Performed By: #### T 7, LIPID, CMP, TSH #### Laboratory [address] [place] [address] [address] Ladi Hernandez ALT [Catalytic activity/Vol] 33 U/L Normal 14-59 [facility] Comment on above: Performed By: #### T 7, LIPID, CMP, TSH #### Laboratory [address] [place] [address] Dr. Ladi Hernandez Anion gap [Moles/Vol] 10.3 mmol/L Normal [facility] Comment on above: Performed By: #### T 7, LIPID, CMP, TSH #### Laboratory [address] [place] [address] Dr. Ladi Hernandez AST [Catalytic activity/Vol] 22 U/L Normal 15-37 [facility] Comment on above: Performed By: #### T 7, LIPID, CMP, TSH #### Laboratory [address] [place] [address] [address] Ladi Hernandez Bilirubin [Mass/Vol] 0.3 mg/dL Normal 0.2-1.0 [facility] Comment on above: Performed By: #### T 7, LIPID, CMP, TSH #### Laboratory [address] [place] [address] [address] Ladi Hernandez Calcium [Mass/Vol] 9.8 mg/dL Normal 8.5-10.1 [place] Comment on above: Performed By: #### T 7, LIPID, CMP, TSH #### Laboratory [address] [place] [address] Dr. Ladi Hernandez Chloride [Moles/Vol] 105 mmol/L Normal 98-107 [facility] Comment on above: Performed By: #### T 7, LIPID, CMP, TSH #### Laboratory [address] [place] [address] [address] Ladi Hernandez CO2 [Moles/Vol] 29.1 mmol/L Normal 21.0-32.0 [facility] Comment on above: Performed By: #### T 7, LIPID, CMP, TSH #### Laboratory [address] [place] [address] [address] Ladi Hernandez Creatinine [Mass/Vol] 0.62 mg/dL Normal 0.55-1.02 [facility] Comment on above: Performed By: #### T 7, LIPID, CMP, TSH #### Laboratory [address] [place] [address] Dr. Ladi Hernandez EGFR-AF STATELESS >60 Normal >=60 [facility] Comment on above: Performed By: #### T 7, LIPID, CMP, TSH #### Laboratory [address] [place] [address] [address] Ladi Hernandez EGFR-NON AF STATELESS >60 Normal >=60 [facility] Comment on above: Performed By: #### T 7, LIPID, CMP, TSH #### Laboratory [address] [place] [address] Dr. Ladi Hernandez Globulin (S) [Mass/Vol] 4.0 g/dL Normal [facility] Comment on above: Performed By: #### T 7, LIPID, CMP, TSH #### Laboratory [address] [address] [address] Ladi Hernandez Glucose [Mass/Vol] 104 mg/dL Normal 74-106 [place] Comment on above: Performed By: #### T 7, LIPID, CMP, TSH #### Laboratory [address] [place] [address] [address] Ladi Hernandez Potassium [Moles/Vol] 4.4 mmol/L Normal 3.5-5.1 [facility] Comment on above: Performed By: #### T 7, LIPID, CMP, TSH #### Laboratory [address] [place] [address] Dr. Ladi Hernandez Protein [Mass/Vol] 8.1 g/dL Normal 6.4-8.2 [place] Comment on above: Performed By: #### T 7, LIPID, CMP, TSH #### Laboratory [address] [place] [address] [address] Ladi Hernandez Sodium [Moles/Vol] 140 mmol/L Normal 136-145 [place] Comment on above: Performed By: #### T 7, LIPID, CMP, TSH #### Laboratory [address] [place] [address] [address] Ladi Hernandez Urea nitrogen [Mass/Vol] 17.0 mg/dL Normal 7.0-18.0 [facility] Comment on above: Performed By: #### T 7, LIPID, CMP, TSH #### Laboratory [address] [address] [address] Ladi Hernandez Urea nitrogen/Creatinine [Mass ratio] 27.4 mg/mg Normal [facility] Comment on above: Performed By: #### T 7, LIPID, CMP, TSH #### Laboratory [address] [address] [address] Ladi Hernandez TSHon 02-02-2023 TSH 1.137 uIU/mL Normal 0.358-3.740 [facility] Comment on above: Performed By: #### T 7, LIPID, CMP, TSH #### [id number] [place] [address]Dr. Ladi Hernandez VITAMIN D 25 OHon 02-02-2023 VIT D 25-OH 36.1 ng/mL Normal [facility] Comment on above: Performed By: #### V ITAD, IRON #### Laboratory [address] [place] [address] [address] Ladi Hernandez VIT D RANGES SEE BELOW Normal [facility] Comment on above: Result Comment: <20 ng/mL Vit D deficient 20 - <30 ng/mL Vit D insufficient 30 - 100 ng/mL Vit D sufficient >100 ng/mL Potential Toxicity Performed By: #### V ITAD, IRON #### Laboratory [address] [address] [address] CHEST WO CONon [...] by: JEREMIAS RUBIN Date: 2023-01-23 10:38 Normal [facility] Consent for COVID Vaccineon 2021 SARS-CoV-2 (COVID-19) RNA OSMANY+probe Ql (Unsp spec) [id number]#1. 00CD:127 Normal [facility] Consent for COVID Vaccineon 01-09-2021 SARS-CoV-2 (COVID-19) RNA OSMANY+probe Ql (Unsp spec) [id number]#1. 00CD:127 Normal [facility] Consent for Treatmenton 12-22 Consent for Treatment [id number]#1. 00CD:127 [facility] Coding Summary.on 01-06-2021 Coding Summary. CODING DATE: 01/06/2021 FINAL [facility] STATUS: PAYOR: Vj APC DESCRIPTION [id number] [...] Gloria Alves Date Saved: 01/06/2021 06:04 pm [facility] Encounters Encounter Date Encounter Type Care Provider Facility Start: 02-13-2023 End: 02-14-[address] PRESLEY FRANCO . Facility:[facility] Start: 02-08-2023 Encounter for genera l adult medical examination without abnormal findings DR PRESLEY FRANCO . The Start: 02-06-2023 End: 02-07-[address] PRESLEY [...] Facility:[facility] Payers Date Payer Category Payer Unknown [id number] 2.16.84 [id number] 1965 Unknown [id number] 2.16.84 [id number] 1965 Unknown [id number] 2.16.84 [id number] 1965 Unknown [id number] 2.16.84 [id number] 1965 Unknown [id number] 2.16.84 [id number] 1961 Unknown [id number] Summary Purpose Family History No Family History Records FoundNo Family History Records Found Advance Directives No Advanced Directives Records FoundNo Advanced Directives Records Found Additional Source Comments INFORMATION SOURCE (unrecogn ized section and content) DATE CREATED AUTHOR 04/24/2021 [facility] DATE CREATED AUTHOR AUTHOR'S JENNIFER ZAVALA 02/18/2023 [facility] FOR RECORDS PERTAINING TO PATIENTS WHO ARE [...] BE BASED ON THE PRIMARY CLINICAL RECORDS. [facility] [employer] provides no warranty or guarantee of the accuracy or completeness of information in this document.
[2025-01-29 07:09] LABS: Basophils Percent Auto 0.3 % (0.2-2.0); Eosinophils Absolute Auto 0.1 10^3/uL (0.0-0.7); Eosinophils Percent Auto 0.6 % (0.9-7.0); Hematocrit 42.1 % (36.0-48.0); Hemoglobin 13.9 g/dL (12.0-16.0); Immature Granulocytes Abs Auto 0.03 10^3/uL (0.00-0.03); Immature Granulocytes Pct Auto 0.3 % (0.0-0.5); Lymphocytes Absolute Auto 1.8 10^3/uL (1.2-3.8); Lymphocytes Percent Auto 18.2 % (20.5-60.0); Mean Corpuscular Hemoglobin 27.9 pg (26.7-34.0); Mean Corpuscular Volume 84.4 fL (81.0-99.0); Mean Platelet Volume 11.3 fL (9.5-13.5); Monocytes Absolute Auto 0.7 10^3/uL (0.3-0.8); Monocytes Percent Auto 7.2 % (1.7-12.0); Neutrophils Absolute Auto 7.2 10^3/uL (1.4-6.5); Neutrophils Percent Auto 73.4 % (43.0-75.0); Platelet Count 250 10^3/uL (150-450); Red Blood Count 4.99 10^6/uL (4.20-5.40); Red Cell Distribution Width 13.3 % (11.0-15.0); White Blood Count 9.8 10^3/uL (4.0-11.0)
[2025-01-29 07:27] LABS: Estimated Average Glucose 120 mg/dL; Glycohemoglobin A1C 5.8 % (4.5-6.2)
[2025-01-29 07:39] LABS: Alanine Aminotransferase 26 U/L (14-59); Albumin Globulin Ratio 1.2; Albumin Level 4.1 g/dL (3.4-5.0); Alkaline Phosphatase 113 U/L (46-116); Anion Gap 11.7; Aspartate Amino Transferase 12 U/L (15-37); Bilirubin Total 0.2 mg/dL (0.2-1.0); Calcium 9.6 mg/dL (8.5-10.1); Carbon Dioxide 26.6 mmol/L (21.0-32.0); Chloride 105 mmol/L (98-107); Chol HDL Ratio 4.2; Cholesterol 252 mg/dL (<=200); Estimated GFR (African America >60 (>=60 mL/min/1.73m^2); Estimated GFR (Non-African Ame >60 (>=60 mL/min/1.73m^2); Free T3 2.35 pg/mL (2.18-3.98); Globulin 3.5 g/dL; Glucose 101 mg/dL (74-106); HDL Cholesterol 60 mg/dL (40-60); Potassium 4.3 mmol/L (3.5-5.1); Sodium 139 mmol/L (136-145); Total Protein 7.6 g/dL (6.4-8.2); Triglycerides 159 mg/dL (<=150); VLDL CHOLESTEROL 31.8 mg/dL
[2025-01-29 14:38] LABS: Internal Control Within Normal Limits; Occult Blood Negative
== END 2025-01-29 06:49 | disposition home or self-care (01) ==
LOC: LAB 06:50
PROVIDERS: PCP Family Medicine; Visit Provider Family Medicine
DX: Z00.00 Encounter for general adult medical examination without abnormal findings (principal)
CPT/HCPCS: 36415; 80053; 80061; 83036; 84436; 84443; 84481; 85025; G0328

== ENCOUNTER 2025-02-10 07:10 | Outpatient (OUT) | payer BC, SELFPAY ==
--- NOTE | 2025-02-10 | US_ITS ---
The [address] [address] Patient Name: SCOTTIE VENEGAS MRN: [id number] date: 1965 Sex: F Assigned Patient Location: [place] Current Patient Location: [place] Accession/Order Number: [id number] Exam Date: 02/10/2025 10:03 Report Date: 02/10/2025 10:05 At the request of: PRESLEY FRANCO MD Procedure: US right upper quadrant LIMITED ABDOMINAL ULTRASOUND WITH ASSESSMENT OF RIGHT UPPER QUADRANT HISTORY: Right upper quadrant pain for 2 years COMPARISON: None Negative ultrasound Lopez's sign reported. COMMON BILE DUCT: Normal caliber. No intraluminal abnormality. LIVER CONTOUR: Normal. LIVER PARENCHYMA: Hepatic steatosis HEPATIC LESION: None INTRAHEPATIC BILIARY DUCTAL DILATATION No ductal dilatation identified. GALLSTONES: No shadowing gallstones. GALLBLADDER SLUDGE: No gallbladder sludge. GALLBLADDER WALL: Normal thickness PERICHOLECYSTIC FLUID: None Pancreas: Unremarkable PORTAL VEIN: Normal blood flow. Liver size: Normal No RIGHT hydronephrosis identified. US/US right upper quadrant IMPRESSION: Hepatic steatosis. No biliary duct dilatation. Unremarkable gallbladder and pancreas. Impression dictated by: Son Nunez M.D.02/10/2025 10:05 AM Dictation Location: [place] [address] Electronically authenticated by: [id number] Y Date: 02/10/2025 10:05
--- OUTSIDE RECORDS SUMMARY | 2025-02-10 07:13 | XMS_ITS | CCD ---
Author Organization [facility] [employer]ini[employer] Care Team Providers Care Trash Man Name Role Phone SALVADOR ., DR SHERWOOD [...] Unavailable HOY ., DR SHERWOOD Consulting Unavailable ASTORIA, DR SANTIAGO Stafford Consulting Unavailable HOY ., [...] Facility (1 source) Cephalexin Drug Allergy [facility] Repository Problems Problem Classification Problem Date [...] : DR PRESLEY FRANCO . Admission #: [id number] Family : Order #: [id number] CLICK HERE TO VIEW EXAM RADIOLOGY REPORT [...] Salazar M.D. on 02/13/2023 at 12:06 Normal [facility] MG MAMM SCREEN 3D ELIE CADon 02-06-2023 MG MAMM SCREEN 3D ELIE CAD Patient: SCOTTIE VENEGAS. Exam Date: 02/06/2023 : 1965 Gender:F Ordering : DR PRESLEY FRANCO . Admission #: [id number] Family : Order #: [id number] CLICK HERE TO VIEW EXAM RADIOLOGY REPORT PROCEDURE: MAMMOGRAM SCREENING 3D BILATERAL CAD COMPARISON: None. INDICATIONS: Screening mammography Calculator Name NCI Breast Cancer Risk Assessment Tool 5 Year Breast Cancer Risk 0.90% Lifetime Breast Cancer Risk 4.90% Personal Breast Cancer No Personal Ovarian Cancer No Treatments None Family Cancers None LOCATION: [facility] BREAST COMPOSITION: Scattered areas fibroglandular density. [...] MD on 02/06/2023 at 10:08 Normal [facility] INSULINon 2023 Insulin 9.3 uIU/mL Normal 2.6-24.9 [facility] Comment on above: Performed By: #### I NSULIN #### [facility] [address] [place] [address] Dr. Ladi Hernandez OCC BLD IMMUNO SCREENon 01-21 OCCULT BLOOD Negative Normal NEGATIVE [facility] Comment on above: Performed By: #### O BSCRN ####[facility] [address] [place] [address]Dr. Ladi Hernandez CBC AUTO DIFFon 02-02-2023 BASO # 0.0 103/ul Normal 0.0-0.1 [facility] Comment on above: Performed By: #### C BC #### [facility] [address] [place] [address] Dr. Ladi Hernandez Basophils/100 WBC (Bld) 0.7 % Normal 0.2-2.0 [facility] Comment on above: Performed By: #### C BC #### [facility] [address] [place] [address] Dr. Ladi Hernandez EO # 0.2 103/ul Normal 0.0-0.7 [facility] Comment on above: Performed By: #### C BC #### [facility] [address] [place] [address] Dr. Ladi Hernandez Eosinophils/100 WBC (Bld) 3.1 % Normal 0.9-7.0 [facility] Comment on above: Performed By: #### C BC #### [facility] [address] [place] [address] Dr. Ladi Hernandez Erythrocyte distribution width (RBC) [Ratio] 13.0 % Normal 11.0-15.0 [facility] Comment on above: Performed By: #### C BC #### [facility] [address] [place] [address] Dr. Ladi Hernandez Hematocrit (Bld) [Volume fraction] 42.5 % Normal 36.0-48.0 [facility] Comment on above: Performed By: #### C BC #### [facility] [address] [place] [address] Dr. Ladi Hernandez Hemoglobin (Bld) [Mass/Vol] 14.1 g/dL Normal 12.0-16.0 [facility] Comment on above: Performed By: #### C BC #### [facility] [address] [place] [address] Dr. Ladi Hernandez IG # 0.01 10e3/ul Normal 0.00-0.03 [facility] Comment on above: Performed By: #### C BC #### [facility] [address] [place] [address] Dr. Ladi Hernandez IG % 0.2 % Normal 0.0-0.[address] [facility] Comment on above: Performed By: #### C BC #### [facility] [address] [place] [address] Dr. Ladi Hernandez LYMPH # 1.8 103/ul Normal 1.2-3.8 [facility] Comment on above: Performed By: #### C BC #### [facility] [address] [place] [address] Dr. Ladi Hernandez Lymphocytes/100 WBC (Bld) 32.0 % Normal 20.5-60.0 [facility] Comment on above: Performed By: #### C BC #### [facility] [address] [place] [address] Dr. Ladi Hernandez MANUAL DIFF REQ NO Normal [facility] Comment on above: Performed By: #### C BC #### [facility] [address] [place] [address] Dr. Ladi Hernandez MCH (RBC) [Entitic mass] 27.2 pg Normal 26.7-34.0 [facility] Comment on above: Performed By: #### C BC #### [facility] [address] [place] [address] Dr. Ladi Hernandez MCHC (RBC) [Mass/Vol] 33.2 g/dL Normal 29.9-35.2 [facility] Comment on above: Performed By: #### C BC #### [facility] [address] [place] [address] Dr. Ladi Hernandez MCV (RBC) [Entitic vol] 81.9 fL Normal 81.0-99.0 [facility] Comment on above: Performed By: #### C BC #### [facility] [address] [place] [address] Dr. Ladi Hernandez MONO # 0.5 103/ul Normal 0.3-0.8 [facility] Comment on above: Performed By: #### C BC #### [facility] [address] [place] [address] Dr. Ladi Hernandez Monocytes/100 WBC (Bld) 8.3 % Normal 1.7-12.0 [facility] Comment on above: Performed By: #### C BC #### [facility] [address] [place] [address] Dr. Ladi Hernandez NEUT # 3.1 103/ul Normal 1.4-6.5 [facility] Comment on above: Performed By: #### C BC #### [facility] [address] [place] [address] Dr. Ladi Hernandez Neutrophils/100 WBC (Bld) 55.7 % Normal 43.0-75.0 [facility] Comment on above: Performed By: #### C BC #### [facility] [address] [address] [address] Ladi Hernandez Platelet mean volume (Bld) [Entitic vol] 10.6 fL Normal 9.5-13.5 [facility] Comment on above: Performed By: #### C BC #### [facility] [address] [address] [address] Ladi Hernandez PLT 271 103/ul Normal 150-[address] [facility] Comment on above: Performed By: #### C BC #### [facility] [address] [address] [address] Ladi Hernandez RBC 5.19 106/ul Normal 4.20-5.40 [facility] Comment on above: Performed By: #### C BC #### [facility] [address] [address] [address] Ladi Hernandez WBC 5.6 103/ul Normal 4.0-11.0 [facility] Comment on above: Performed By: #### C BC #### [facility] [address] [address] [address] Ladi Hernandez FREE THYROXINE INDEX T7on FTI 3.73 Normal 1.30-4.50 [facility] Comment on above: Performed By: #### T 7, LIPID, CMP, TSH #### [facility] [address] [address] [address] Ladi Hernandez T3U 33.0 % Normal 30.0-39.0 [facility] Comment on above: Performed By: #### T 7, LIPID, CMP, TSH #### [facility] [address] [address] [address] Ladi Hernandez T4 [Mass/Vol] 11.30 ug/dL Normal 4.80-13.[address] [facility] Comment on above: Performed By: #### T 7, LIPID, CMP, TSH #### [facility] [address] [address] [address] Ladi Hernandez GLYCOHEMOGLOBIN A1Con 2022 ADA RECOMMENDATION SEE BELOW Normal [facility] Comment on above: Result Comment: ADA RECOMMENDED LIMIT 4.0 - 6.0 ADA THERAPEUTIC TARGET < 7.0 ACTION SUGGESTED > 7.0 Performed By: #### A 1C #### [facility] [address] [address] [address] Ladi Hernandez Glucose [Mass/Vol] 123 mg/dL Normal [facility] Comment on above: Performed By: #### A 1C #### [facility] [address] [address] [address] Ladi Hernandez HbA1c (Bld) [Mass fraction] 5.9 % Normal 4.5-6.2 [facility] Comment on above: Performed By: #### A 1C #### [facility] [address] [address] [address] Ladi Hernandez IRONon 02-02-2023 Iron [Mass/Vol] 87.0 ug/dL Normal 50.0-170.0 [facility] Comment on above: Performed By: #### V ITAD, IRON #### [facility] [address] [address] [address] Ladi Hernandez LIPID PROFILEon 02-02-2023 CHOL-HDL RATIO NORM SEE BELOW Normal [facility] Comment on above: Result Comment: 3.3 - 4.4 LOW RISK 4.4 - 7.1 AVERAGE RISK 7.1 - 11.0 MODERATE RISK >11.0 HIGH RISK Performed By: #### T 7, LIPID, CMP, TSH ####[facility] [address] [place] [address]Dr. Ladi Hernandez Cholesterol [Mass/Vol] 305 mg/dL Critically high <=[address] [facility] Comment on above: Performed By: #### T 7, LIPID, CMP, TSH ####[facility] [address] [place] [address]. Ladi Hernandez Cholesterol in HDL [Mass/Vol] 61 mg/dL Critically high 40-60 [facility] Comment on above: Performed By: #### T 7, LIPID, CMP, TSH ####[facility] [address] [place] [address]Dr. Ladi Hernandez Cholesterol in LDL [Mass/Vol] 221.6 mg/dL Normal [facility] Comment on above: Performed By: #### T 7, LIPID, CMP, TSH ####[facility] [address] [place] [address]. Ladi Hernandez Cholesterol.total/Ch olesterol in HDL [Mass ratio] 5.0 {ratio} Normal [facility] Comment on above: Performed By: #### T 7, LIPID, CMP, TSH ####[facility] [address] [place], [place] [address]Sc. Ladi Hernandez HDL NORMAL > or = 60 mg/dl - LO W CARDIOVASCULAR RISK <40 mg/dl - HIGH CARDIOVASCULAR RISK Normal [facility] Comment on above: Performed By: #### T 7, LIPID, CMP, TSH ####[facility] [address] [place] [id number]. Ladi Hernandez LDL CALC NORMAL SEE BELOW Normal [facility] Comment on above: Result Comment: <100 mg/dl OPTIMAL 100 - 129 mg/dl NEAR OR ABOVE OPTIMAL 130 - 159 mg/dl BORDERLINE HIGH 160 - 189 mg/dl HIGH >190 mg/dl VERY HIGH Performed By: #### T 7, LIPID, CMP, TSH ####[facility] [address] [place] [id number]. Ladi Hernandez Triglyceride [Mass/Vol] 112 mg/dL Normal <=[address] [facility] Comment on above: Performed By: #### T 7, LIPID, CMP, TSH ####[facility] [address] [place] [id number]. Ladi Hernandez VLDL CALC 22.4 mg/dL Normal [facility] Comment on above: Performed By: #### T 7, LIPID, CMP, TSH ####[facility] [address] [place] [address]Dr. Ladi Hernandez PROF 14(COMP METB)on 023 Albumin [Mass/Vol] 4.1 g/dL Normal 3.4-5.0 [facility] Comment on above: Performed By: #### T 7, LIPID, CMP, TSH #### [facility] [address] [address] [address] Ladi Hernandez Albumin/Globulin [Mass ratio] 1.0 {ratio} Normal [facility] Comment on above: Performed By: #### T 7, LIPID, CMP, TSH #### [facility] [address] [address] [address] Ladi Hernandez ALP [Catalytic activity/Vol] 110 U/L Normal 46-116 [facility] Comment on above: Performed By: #### T 7, LIPID, CMP, TSH #### [facility] [address] [address] [address] Ladi Hernandez ALT [Catalytic activity/Vol] 33 U/L Normal 14-59 [facility] Comment on above: Performed By: #### T 7, LIPID, CMP, TSH #### [facility] [address] [place] [address] Dr. Ladi Hernandez Anion gap [Moles/Vol] 10.3 mmol/L Normal [facility] Comment on above: Performed By: #### T 7, LIPID, CMP, TSH #### [facility] [address] [place] [address] Dr. Ladi Hernandez AST [Catalytic activity/Vol] 22 U/L Normal 15-37 [facility] Comment on above: Performed By: #### T 7, LIPID, CMP, TSH #### [facility] [address] [address] [address] Ladi Hernandez Bilirubin [Mass/Vol] 0.3 mg/dL Normal 0.2-1.0 [facility] Comment on above: Performed By: #### T 7, LIPID, CMP, TSH #### [facility] [address] [address] [address] Ladi Hernandez Calcium [Mass/Vol] 9.8 mg/dL Normal 8.5-10.1 [facility] Comment on above: Performed By: #### T 7, LIPID, CMP, TSH #### [facility] [address] [place] [address] Dr. Ladi Hernandez Chloride [Moles/Vol] 105 mmol/L Normal 98-107 [facility] Comment on above: Performed By: #### T 7, LIPID, CMP, TSH #### [facility] [address] [address] [address] Ladi Hernandez CO2 [Moles/Vol] 29.1 mmol/L Normal 21.0-32.0 [facility] Comment on above: Performed By: #### T 7, LIPID, CMP, TSH #### [facility] [address] [address] [address] Ladi Hernandez Creatinine [Mass/Vol] 0.62 mg/dL Normal 0.55-1.02 [facility] Comment on above: Performed By: #### T 7, LIPID, CMP, TSH #### [facility] [address] [place] [address] Dr. Ladi Hernandez EGFR-AF LIBERIAN >60 Normal >=60 [facility] Comment on above: Performed By: #### T 7, LIPID, CMP, TSH #### [facility] [address] [address] [address] Ladi Hernandez EGFR-NON AF LIBERIAN >60 Normal >=60 [facility] Comment on above: Performed By: #### T 7, LIPID, CMP, TSH #### [facility] [address] [place] [address] Dr. Ladi Hernandez Globulin (S) [Mass/Vol] 4.0 g/dL Normal [facility] Comment on above: Performed By: #### T 7, LIPID, CMP, TSH #### [facility] [address] [address] [address] Ladi Hernandez Glucose [Mass/Vol] 104 mg/dL Normal 74-106 [facility] Comment on above: Performed By: #### T 7, LIPID, CMP, TSH #### [facility] [address] [address] [address] Ladi Hernandez Potassium [Moles/Vol] 4.4 mmol/L Normal 3.5-5.1 [facility] Comment on above: Performed By: #### T 7, LIPID, CMP, TSH #### [facility] [address] [place] [address] Dr. Ladi Hernandez Protein [Mass/Vol] 8.1 g/dL Normal 6.4-8.2 [facility] Comment on above: Performed By: #### T 7, LIPID, CMP, TSH #### [facility] [address] [address] [address] Ladi Hernandez Sodium [Moles/Vol] 140 mmol/L Normal 136-145 [facility] Comment on above: Performed By: #### T 7, LIPID, CMP, TSH #### [facility] [address] [address] [address] Ladi Hernandez Urea nitrogen [Mass/Vol] 17.0 mg/dL Normal 7.0-18.0 [facility] Comment on above: Performed By: #### T 7, LIPID, CMP, TSH #### [facility] [address] [address] [address] Ladi Hernandez Urea nitrogen/Creatinine [Mass ratio] 27.4 mg/mg Normal [facility] Comment on above: Performed By: #### T 7, LIPID, CMP, TSH #### [facility] [address] [address] [address] Ladi Hernandez TSHon 02-02-2023 TSH 1.137 uIU/mL Normal 0.358-3.740 [facility] Comment on above: Performed By: #### T 7, LIPID, CMP, TSH ####[facility] [address] [place] [address]Dr. aLdi Hernandez VITAMIN D 25 OHon 02-02-2023 VIT D 25-OH 36.1 ng/mL Normal [facility] Comment on above: Performed By: #### V ITAD, IRON #### [facility] [address] [address] [address] Ladi Hernandez VIT D RANGES SEE BELOW Normal [facility] Comment on above: Result Comment: <20 ng/mL Vit D deficient 20 - <30 ng/mL Vit D insufficient 30 - 100 ng/mL Vit D sufficient >100 ng/mL Potential Toxicity Performed By: #### V ITAD, IRON #### [facility] [address] [address] [address] CHEST WO CONon [...] by: JEREMIAS RUBIN Date: 2023-01-23 10:38 Normal [facility] Consent for COVID Vaccineon 2021 SARS-CoV-2 (COVID-19) RNA OSMANY+probe Ql (Unsp spec) [id number]#1. 00CD:127 Normal [facility] Consent for COVID Vaccineon 01-09-2021 SARS-CoV-2 (COVID-19) RNA OSMANY+probe Ql (Unsp spec) [id number]#1. 00CD:127 Normal [facility] Consent for Treatmenton 12-22 Consent for Treatment [id number]#1. 00CD:127 [facility] Coding Summary.on 01-06-2021 Coding Summary. CODING DATE: 01/06/2021 FINAL [facility] STATUS: PAYOR: Vj APC DESCRIPTION [id number] [...] Gloria Alves Date Saved: 01/06/2021 06:04 pm [facility] Encounters Encounter Date Encounter Type Care Provider Facility Start: 02-13-2023 End: 02-14-[address] PRESLEY FRANCO . Facility:[facility] Start: 02-08-2023 Encounter for genera l adult medical examination without abnormal findings DR PRESLEY FRANCO . [facility] Start: 02-06-2023 End: 02-07-[address] [...] Facility:[facility] Payers Date Payer Category Payer Unknown [id number] 2.16.84 [id number] 1965 Unknown [id number] 2.16.84 [id number] 1965 Unknown [id number] 2.16.84 [id number] 1965 Unknown [id number] 2.16.84 [id number] 1965 Unknown [id number] 2.16.84 [id number] 1961 Unknown [id number] Summary Purpose Family History No Family History Records FoundNo Family History Records Found Advance Directives No Advanced Directives Records FoundNo Advanced Directives Records Found Additional Source Comments INFORMATION SOURCE (unrecogn ized section and content) DATE CREATED AUTHOR 04/24/2021 [facility] DATE CREATED AUTHOR AUTHOR'S JENNIFER ZAVALA 02/18/2023 [facility] FOR RECORDS PERTAINING TO PATIENTS WHO [...] THE PRIMARY CLINICAL RECORDS. [facility] [employer] provides no warranty or guarantee of the accuracy or completeness of information in this document.
== END 2025-02-10 07:11 | disposition home or self-care (01) ==
LOC: US 07:10
PROVIDERS: PCP Family Medicine; Visit Provider Family Medicine
DX: Z00.00 Encounter for general adult medical examination without abnormal findings (principal); R10.9 Unspecified abdominal pain; K76.0 Fatty (change of) liver, not elsewhere classified
CPT/HCPCS: 76705

== ENCOUNTER 2025-03-10 07:24 | Outpatient (OUT) | payer BC, SELFPAY ==
--- OUTSIDE RECORDS SUMMARY | 2025-03-10 07:27 | XMS_ITS | CCD ---
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 Admission #: [id number] Family : Order #: [id number] CLICK HERE TO VIEW EXAM RADIOLOGY REPORT [...] Salazar M.D. on 02/13/2023 at 12:06 Normal [facility] MG MAMM SCREEN 3D ELIE CADon 02-06-2023 MG MAMM SCREEN 3D ELIE CAD Patient: SCOTTIE VENEGAS. Exam Date: 02/06/2023 : 1965 Gender:F Ordering : DR PRESLEY FRANCO . Admission #: [id number] Family : Order #: [id number] CLICK HERE TO VIEW EXAM RADIOLOGY REPORT PROCEDURE: MAMMOGRAM SCREENING 3D BILATERAL CAD COMPARISON: None. INDICATIONS: Screening mammography Calculator Name NCI Breast Cancer Risk Assessment Tool 5 Year Breast Cancer Risk 0.90% Lifetime Breast Cancer Risk 4.90% Personal Breast Cancer No Personal Ovarian Cancer No Treatments None Family Cancers None LOCATION: [facility] BREAST COMPOSITION: Scattered areas fibroglandular density. FINDINGS: [...] MD on 02/06/2023 at 10:08 Normal [facility] INSULINon 2023 Insulin 9.3 uIU/mL Normal 2.6-24.9 [facility] Comment on above: Performed By: #### I NSULIN #### [facility] [address] [place] [address] Dr. Ladi Hernandez OCC BLD IMMUNO SCREENon 01-21 OCCULT BLOOD Negative Normal NEGATIVE [facility] Comment on above: Performed By: #### O BSCRN ####[facility] [address] [place] [address]Dr. Ladi Hernandez CBC AUTO DIFFon 02-02-2023 BASO # 0.0 103/ul Normal 0.0-0.1 [facility] Comment on above: Performed By: #### C BC #### [facility] [address] [place] [address] Dr. Ladi Hernandez Basophils/100 WBC (Bld) 0.7 % Normal 0.2-2.0 [facility] Comment on above: Performed By: #### C BC #### [facility] [address] [place] [address] Dr. Ladi Hernandez EO # 0.2 103/ul Normal 0.0-0.7 [facility] Comment on above: Performed By: #### C BC #### [facility] [address] [place] [address] Dr. Ladi Hernandez Eosinophils/100 WBC (Bld) 3.1 % Normal 0.9-7.0 [facility] Comment on above: Performed By: #### C BC #### [facility] [address] [place] [address] Dr. Ladi Hernandez Erythrocyte distribution width (RBC) [Ratio] 13.0 % Normal 11.0-15.0 [facility] Comment on above: Performed By: #### C BC #### [facility] [address] [place] [address] Dr. Ladi Hernandez Hematocrit (Bld) [Volume fraction] 42.5 % Normal 36.0-48.0 [facility] Comment on above: Performed By: #### C BC #### [facility] [address] [place] [address] Dr. Ladi Hernandez Hemoglobin (Bld) [Mass/Vol] 14.1 g/dL Normal 12.0-16.0 [facility] Comment on above: Performed By: #### C BC #### [facility] [address] [place] [address] Dr. Ladi Hernandez IG # 0.01 10e3/ul Normal 0.00-0.03 [facility] Comment on above: Performed By: #### C BC #### [facility] [address] [place] [address] Dr. Ladi Hernandez IG % 0.2 % Normal 0.0-0.5 [facility] Comment on above: Performed By: #### C BC #### [facility] [address] [place] [address] Dr. Ladi Hernandez LYMPH # 1.8 103/ul Normal 1.2-3.8 [facility] Comment on above: Performed By: #### C BC #### [facility] [address] [place] [address] Dr. Ladi Hernandez Lymphocytes/100 WBC (Bld) 32.0 % Normal 20.5-60.0 [facility] Comment on above: Performed By: #### C BC #### [facility] [address] [place] [address] Dr. Ladi Hernandez MANUAL DIFF REQ NO Normal [facility] Comment on above: Performed By: #### C BC #### [facility] [address] [place] [address] Dr. Ladi Hernandez MCH (RBC) [Entitic mass] 27.2 pg Normal 26.7-34.0 [facility] Comment on above: Performed By: #### C BC #### [facility] [address] [place] [address] Dr. Ladi Hernandez MCHC (RBC) [Mass/Vol] 33.2 g/dL Normal 29.9-35.2 [facility] Comment on above: Performed By: #### C BC #### [facility] [address] [place] [address] Dr. Ladi Hernandez MCV (RBC) [Entitic vol] 81.9 fL Normal 81.0-99.0 [facility] Comment on above: Performed By: #### C BC #### [facility] [address] [place] [address] Dr. Ladi Hernandez MONO # 0.5 103/ul Normal 0.3-0.8 [facility] Comment on above: Performed By: #### C BC #### [facility] [address] [place] [address] Dr. Ladi Hernandez Monocytes/100 WBC (Bld) 8.3 % Normal 1.7-12.0 [facility] Comment on above: Performed By: #### C BC #### [facility] [address] [place] [address] Dr. Ladi Hernandez NEUT # 3.1 103/ul Normal 1.4-6.5 [facility] Comment on above: Performed By: #### C BC #### [facility] [address] [place] [address] Dr. Ladi Hernandez Neutrophils/100 WBC (Bld) 55.7 % Normal 43.0-75.0 [facility] Comment on above: Performed By: #### C BC #### [facility] [address] [place] [address] [address] Ladi Hernandez Platelet mean volume (Bld) [Entitic vol] 10.6 fL Normal 9.5-13.5 [facility] Comment on above: Performed By: #### C BC #### [facility] [address] [place] [address] [address] Ladi Hernandez PLT 271 103/ul Normal 150-450 [facility] Comment on above: Performed By: #### C BC #### [facility] [address] [place] [address] [address] Ladi Hernandez RBC 5.19 106/ul Normal 4.20-5.40 [facility] Comment on above: Performed By: #### C BC #### [facility] [address] [place] [address] [address] Ladi Hernandez WBC 5.6 103/ul Normal 4.0-11.0 [facility] Comment on above: Performed By: #### C BC #### [facility] [address] [place] [address] [address] Ladi Hernandez FREE THYROXINE INDEX T7on FTI 3.73 Normal 1.30-4.50 [facility] Comment on above: Performed By: #### T 7, LIPID, CMP, TSH #### [facility] [address] [address] [address] Ladi Hernandez T3U 33.0 % Normal 30.0-39.0 [facility] Comment on above: Performed By: #### T 7, LIPID, CMP, TSH #### [facility] [address] [place] [address] [address] Ladi Hernandez T4 [Mass/Vol] 11.30 ug/dL Normal 4.80-13.90 [facility] Comment on above: Performed By: #### T 7, LIPID, CMP, TSH #### [facility] [address] [address] [address] Ladi Hernandez GLYCOHEMOGLOBIN A1Con 2022 ADA RECOMMENDATION SEE BELOW Normal [facility] Comment on above: Result Comment: ADA RECOMMENDED LIMIT 4.0 - 6.0 ADA THERAPEUTIC TARGET < 7.0 ACTION SUGGESTED > 7.0 Performed By: #### A 1C #### [facility] [address] [address] [address] Ladi Hernandez Glucose [Mass/Vol] 123 mg/dL Normal [facility] Comment on above: Performed By: #### A 1C #### [facility] [address] [address] [address] Ladi Hernandez HbA1c (Bld) [Mass fraction] 5.9 % Normal 4.5-6.2 [facility] Comment on above: Performed By: #### A 1C #### [facility] [address] [address] [address] Ladi Hernandez IRONon 02-02-2023 Iron [Mass/Vol] 87.0 ug/dL Normal 50.0-170.0 [facility] Comment on above: Performed By: #### V ITAD, IRON #### [facility] [address] [address] [address] Ladi Hernandez LIPID PROFILEon 02-02-2023 CHOL-HDL RATIO NORM SEE BELOW Normal [facility] Comment on above: Result Comment: 3.3 - 4.4 LOW RISK 4.4 - 7.1 AVERAGE RISK 7.1 - 11.0 MODERATE RISK >11.0 HIGH RISK Performed By: #### T 7, LIPID, CMP, TSH ####[facility] [address] [place] [id number]. Ladi Hernandez Cholesterol [Mass/Vol] 305 mg/dL Critically high <=200 [facility] Comment on above: Performed By: #### T 7, LIPID, CMP, TSH ####[facility] [address] [place] [id number]. Ladi Hernandez Cholesterol in HDL [Mass/Vol] 61 mg/dL Critically high 40-60 [facility] Comment on above: Performed By: #### T 7, LIPID, CMP, TSH ####[facility] [address] [place] [id number]. Ladi Hernandez Cholesterol in LDL [Mass/Vol] 221.6 mg/dL Normal [facility] Comment on above: Performed By: #### T 7, LIPID, CMP, TSH ####[facility] [address] [place] [id number]. Ladi Hernandez Cholesterol.total/Ch olesterol in HDL [Mass ratio] 5.0 {ratio} Normal [facility] Comment on above: Performed By: #### T 7, LIPID, CMP, TSH ####[facility] [address] [place], [place] [address]Kv. Ladi Hernandez HDL NORMAL > or = 60 mg/dl - LO W CARDIOVASCULAR RISK <40 mg/dl - HIGH CARDIOVASCULAR RISK Normal [facility] Comment on above: Performed By: #### T 7, LIPID, CMP, TSH ####[facility] [address] [place] [id number]. Ladi Hernandez LDL CALC NORMAL SEE BELOW Normal [facility] Comment on above: Result Comment: <100 mg/dl OPTIMAL 100 - 129 mg/dl NEAR OR ABOVE OPTIMAL 130 - 159 mg/dl BORDERLINE HIGH 160 - 189 mg/dl HIGH >190 mg/dl VERY HIGH Performed By: #### T 7, LIPID, CMP, TSH ####[facility] [address] [place] [id number]. Ladi Hernandez Triglyceride [Mass/Vol] 112 mg/dL Normal <=150 [facility] Comment on above: Performed By: #### T 7, LIPID, CMP, TSH ####[facility] [address] [place] [id number]. Ladi Hernandez VLDL CALC 22.4 mg/dL Normal [facility] Comment on above: Performed By: #### T 7, LIPID, CMP, TSH ####[facility] [address] [place] [id number]. Ladi Hernandez PROF 14(COMP METB)on 023 Albumin [Mass/Vol] 4.1 g/dL Normal 3.4-5.0 [facility] Comment on above: Performed By: #### T 7, LIPID, CMP, TSH #### [facility] [address] [address] [address] Ladi Hernandez Albumin/Globulin [Mass ratio] 1.0 {ratio} Normal [facility] Comment on above: Performed By: #### T 7, LIPID, CMP, TSH #### [facility] [address] [address] [address] Ladi Hernandez ALP [Catalytic activity/Vol] 110 U/L Normal 46-116 [facility] Comment on above: Performed By: #### T 7, LIPID, CMP, TSH #### [facility] [address] [place] [address] [address] Ladi Hernandez ALT [Catalytic activity/Vol] 33 U/L Normal 14-59 [facility] Comment on above: Performed By: #### T 7, LIPID, CMP, TSH #### [facility] [address] [place] [address] Dr. Ladi Hernandez Anion gap [Moles/Vol] 10.3 mmol/L Normal [facility] Comment on above: Performed By: #### T 7, LIPID, CMP, TSH #### [facility] [address] [place] [address] Dr. Ladi Hernandez AST [Catalytic activity/Vol] 22 U/L Normal 15-37 [facility] Comment on above: Performed By: #### T 7, LIPID, CMP, TSH #### [facility] [address] [address] [address] Ladi Hernandez Bilirubin [Mass/Vol] 0.3 mg/dL Normal 0.2-1.0 [facility] Comment on above: Performed By: #### T 7, LIPID, CMP, TSH #### [facility] [address] [address] [address] Ladi Hernandez Calcium [Mass/Vol] 9.8 mg/dL Normal 8.5-10.1 [facility] Comment on above: Performed By: #### T 7, LIPID, CMP, TSH #### [facility] [address] [place] [address] Dr. Ladi Hernandez Chloride [Moles/Vol] 105 mmol/L Normal 98-107 [facility] Comment on above: Performed By: #### T 7, LIPID, CMP, TSH #### [facility] [address] [address] [address] Ladi Hernandez CO2 [Moles/Vol] 29.1 mmol/L Normal 21.0-32.0 [facility] Comment on above: Performed By: #### T 7, LIPID, CMP, TSH #### [facility] [address] [address] [address] Ladi Hernandez Creatinine [Mass/Vol] 0.62 mg/dL Normal 0.55-1.02 [facility] Comment on above: Performed By: #### T 7, LIPID, CMP, TSH #### [facility] [address] [place] [address] Dr. Ladi Hernandez EGFR-AF KOSOVAN >60 Normal >=60 [facility] Comment on above: Performed By: #### T 7, LIPID, CMP, TSH #### [facility] [address] [address] [address] Ladi eHrnandez EGFR-NON AF KOSOVAN >60 Normal >=60 [facility] Comment on above: Performed By: #### T 7, LIPID, CMP, TSH #### [facility] [address] [place] [address] Dr. Ladi Hernandez Globulin (S) [Mass/Vol] 4.0 g/dL Normal [facility] Comment on above: Performed By: #### T 7, LIPID, CMP, TSH #### [facility] [address] [address] [address] Ladi Hernandez Glucose [Mass/Vol] 104 mg/dL Normal 74-106 [facility] Comment on above: Performed By: #### T 7, LIPID, CMP, TSH #### [facility] [address] [address] [address] Ladi Hernandez Potassium [Moles/Vol] 4.4 mmol/L Normal 3.5-5.1 [facility] Comment on above: Performed By: #### T 7, LIPID, CMP, TSH #### [facility] [address] [place] [address] Dr. Ladi Hernandez Protein [Mass/Vol] 8.1 g/dL Normal 6.4-8.2 [facility] Comment on above: Performed By: #### T 7, LIPID, CMP, TSH #### [facility] [address] [address] [address] Ladi Hernandez Sodium [Moles/Vol] 140 mmol/L Normal 136-145 [facility] Comment on above: Performed By: #### T 7, LIPID, CMP, TSH #### [facility] [address] [address] [address] Ladi Hernandez Urea nitrogen [Mass/Vol] 17.0 mg/dL Normal 7.0-18.0 [facility] Comment on above: Performed By: #### T 7, LIPID, CMP, TSH #### [facility] [address] [address] [address] Ladi Hernandez Urea nitrogen/Creatinine [Mass ratio] 27.4 mg/mg Normal [facility] Comment on above: Performed By: #### T 7, LIPID, CMP, TSH #### [facility] [address] [address] [address] Ladi Hernandez TSHon 02-02-2023 TSH 1.137 uIU/mL Normal 0.358-3.740 [facility] Comment on above: Performed By: #### T 7, LIPID, CMP, TSH ####[facility] [address] [place] [address]Dr. Ladi Hernandez VITAMIN D 25 OHon 02-02-2023 VIT D 25-OH 36.1 ng/mL Normal [facility] Comment on above: Performed By: #### V ITAD, IRON #### [facility] [address] [address] [address] Ladi Hernandez VIT D RANGES SEE BELOW Normal [facility] Comment on above: Result Comment: <20 ng/mL Vit D deficient 20 - <30 ng/mL Vit D insufficient 30 - 100 ng/mL Vit D sufficient >100 ng/mL Potential Toxicity Performed By: #### V ITAD, IRON #### [facility] [address] [address] [address] CHEST WO CONon [...] by: JEREMIAS RUBIN Date: 2023-01-23 10:38 Normal [facility] Consent for COVID Vaccineon 2021 SARS-CoV-2 (COVID-19) RNA OSMANY+probe Ql (Unsp spec) [id number]#1. 00CD:127 Normal [facility] Consent for COVID Vaccineon 01-09-2021 SARS-CoV-2 (COVID-19) RNA OSMANY+probe Ql (Unsp spec) [id number]#1. 00CD:127 Normal [facility] Consent for Treatmenton 12-22 Consent for Treatment [id number]#1. 00CD:127 [facility] Coding Summary.on 01-06-2021 Coding Summary. CODING DATE: 01/06/2021 FINAL [facility] STATUS: PAYOR: Vj APC DESCRIPTION 1492 [...] Gloria Alves Date Saved: 01/06/2021 06:04 pm [facility] Encounters Encounter Date Encounter Type Care Provider Facility Start: 02-13-2023 End: 02-14-[address] PRESLEY FRANCO . Facility:[facility] Start: 02-08-2023 Encounter for genera l adult medical examination without abnormal findings DR PRESLEY FRANCO . [facility] Start: 02-06-2023 End: 02-07-[address] PRESLEY [...] Facility:[facility] Payers Date Payer Category Payer Unknown [id number] 2.16.84 [id number] 1965 Unknown [id number] 2.16.84 [id number] 1965 Unknown [id number] 2.16.84 [id number] 1965 Unknown [id number] 2.16.84 [id number] 1965 Unknown [id number] 2.16.84 [id number] 1961 Unknown [id number] Summary Purpose Family History No Family History Records FoundNo Family History Records Found Advance Directives No Advanced Directives Records FoundNo Advanced Directives Records Found Additional Source Comments INFORMATION SOURCE (unrecogn ized section and content) DATE CREATED AUTHOR 04/24/2021 [facility] DATE CREATED AUTHOR AUTHOR'S JENNIFER ZAVALA 02/18/2023 [facility] FOR RECORDS PERTAINING TO PATIENTS WHO [...] BE BASED ON THE PRIMARY CLINICAL RECORDS. [facility] [employer] provides no warranty or guarantee of the accuracy or completeness of information in this document.
--- NOTE | 2025-03-10 07:28 | MM_ITS ---
Patient Name: SCOTTIE VENEGAS MR#: [id number] : 1965 Exam Date: 03/10/2025 Ordering Doctor: DR PRESLEY FRANCO . RADIOLOGY REPORT PROCEDURE: MM TOMOSYNTHESIS SCREENING BI COMPARISON: MM TOMOSYNTHESIS SCREENING BI, 03/04/2024. MM TOMOSYNTHESIS DIAGNOSTIC RT, 08/28/2023. MG MAMM SCREEN 3D ELIE CAD, 02/06/2023. INDICATIONS: Well adult exam Calculator Name NCI Breast Cancer Risk Assessment Tool 5 Year Breast Cancer Risk 1.00% Lifetime Breast Cancer Risk 4.60% Personal Breast Cancer No Personal Ovarian Cancer No Treatments None Family Cancers None LOCATION: [facility] BREAST COMPOSITION: There are scattered areas of fibroglandular density. FINDINGS: RIGHT BREAST: No significant suspicious finding. Similar focal asymmetries are noted on the right. Benign-appearing lymph nodes are noted along the right chest wall. LEFT BREAST: No significant suspicious finding. DIAGNOSTIC CATEGORY 2--BENIGN FINDING: RECOMMENDATIONS: ROUTINE MAMMOGRAM AND CLINICAL EVALUATION IN 12 MONTHS. PLEASE NOTE: A NORMAL MAMMOGRAM DOES NOT EXCLUDE THE POSSIBILITY OF BREAST CANCER. A CLINICALLY SUSPICIOUS PALPABLE LUMP SHOULD BE BIOPSIED. Dictated by: Aureliano Singh MD on 03/10/2025 at 16:46 Approved by: Aureliano Singh MD on 03/10/2025 at 16:52
== END 2025-03-10 07:25 | disposition home or self-care (01) ==
LOC: NM 07:25
PROVIDERS: PCP Family Medicine; Visit Provider Family Medicine
DX: Z12.31 Encounter for screening mammogram for malignant neoplasm of breast (principal); Z00.00 Encounter for general adult medical examination without abnormal findings; R10.9 Unspecified abdominal pain; M54.9 Dorsalgia, unspecified
CPT/HCPCS: 77063; 77067

== ENCOUNTER 2025-03-24 06:57 | Outpatient (OUT) | payer BC, SELFPAY ==
--- OUTSIDE RECORDS SUMMARY | 2025-03-06 05:11 | XMS_ITS ---
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 Goods Washer Name Role Phone Fritz Marquez Primary Care Provider REASON FOR VISIT revise HIDA order Encounters Encounter Location Date Provider Diagnosis [facility] [address] [place] [address] 03/06/2025 Fritz Marquez Back pain M54.9 Assessments Encounter Date Diagnosis (ICD Code) Assessment Notes Treatment Notes Treatment Clinical Notes Section Notes 03/06/2025 Back pain (ICD-10 - M54.9) Plan Of Treatment No Information Progress Notes * Bhargavi BERNARDO ADOB: [birth year] (60 yo F)Acc No.[id number]:03/06/2025 Patient: Iris RENDON Bhargavi Parks :1965 A ge:60 Y S ex:Female Address:[address] [place] [id number] Subjective: * Chief Complaints: * r evise HIDA order * Medical History: * Surgical History: * Hospitalization/Major Diagno stic Procedure: * Medications: Objective: * Vitals: * Physical Examination: Assessment: * Assessment: 1. B ack pain - M54.9 (Primary) Plan: * Treatment: * Procedure Codes: * true * Date: Generated for Printi ng/Faxing/eTransmitting on: 0 03/24/2025 06:59 AM EDT
--- OUTSIDE RECORDS SUMMARY | 2025-03-10 14:59 | XMS_ITS ---
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
--- NOTE | 2025-03-24 | NM_ITS ---
The [address] [address] Patient Name: SCOTTIE VENEGAS MRN: [id number] date: 1965 Sex: F [place]igned [place] Location: [place] Current [place] Location[place] Accession/Order Number: [id number] Exam Date: 03/24/2025 09:54 Report Date: 03/24/2025 09:58 At the request of: PRESLEY FRANCO MD Procedure: NM hepatobiliary w pharm HIDA SCAN WITH CCK CLINICAL HISTORY: BACK PAIN, RUQ PAIN COMPARISON: Ultrasound 02/10/2025 Following the intravenous administration of 4.8 mCi of technetium 99m labeled Mebrofenin, anterior imaging of the abdomen was performed out to 60 minutes. There is uniform distribution of radionuclide within the liver. The common duct is visualized at 25 minutes. There is gallbladder activity by 20 minutes. The small bowel is not well seen on the initial imaging. Patient subsequently ingested 8 ounces of Ensure Plus and imaging was performed for an additional 55 minutes. There is appropriate emptying of the gallbladder on the static and dynamic images. A time/activity curve was generated. The gallbladder ejection fraction is 77% at 20 minutes and 100% at 40 minutes. IL/[place] hepatobiliary w pharm IMPRESSION: WITHIN NORMAL LIMITS. Impression dictated by: Jazmin Cat M.D. 03/24/2025 9:58 AM Dictation Location: [place] [address] Electronically authenticated by: [id number] Y Date: 03/24/2025 09:58
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
--- OUTSIDE RECORDS SUMMARY | 2025-03-24 06:59 | XMS_ITS | Patient Health Record ---
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 If intended option is not shown, discontinue and re-order from Quick Search* Active Immunizations Vaccine Route Administration Date Status Comme nts z2018 Flu Fluzone Quad MDV (0.5mL Admin) 3 y/o & older IM Intramuscular 09/02/2018 Administered z9 FluBLOK Quad 0.5mL PFS (0.5mL Admin) 18 y/o & older IM Intramuscular 09/10/2019 Administered Social History Tobacco Use: Social History Observation Description Date Details (start date - stop date) Former Smoker NA - NA Tobacco Use Question Answer Notes Are you a Former smoker Problems Problem Type SNOMED Code ICD Code Onset Dates Problem Status W/U Status Risk Notes Problem 7590638 Lymphangitis (I89.1) Active confirmed Problem hypercholesterolemia (disorder) (87743860) Hypercholesteremia (E78.00) Active confirmed Plan Of Treatment No Information Insurance Providers Payer Name Payer Address Payer Phone Subscriber Number Group Number Insured Name Patient Relationship to Insured Coverage Start Date Coverage End Date ANA M [employer] [address] [place] [address] [phone] [id number] Bhargavi Bernardo Self - patient is the insured Medical (General) History Medical History History ICD Code Hypercholesteremia E78.00 EGD Surgical History Surgery Date(Month/Year) Vein Removed in legs 1982
--- OUTSIDE RECORDS SUMMARY | 2025-03-24 07:00 | XMS_ITS | CCD ---
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 Admission #: [id number] Family : Order #: [id number] CLICK HERE TO VIEW EXAM RADIOLOGY REPORT [...] Salazar M.D. on 02/13/2023 at 12:06 Normal [facility] MG MAMM SCREEN 3D ELIE CADon 02-06-2023 MG MAMM SCREEN 3D ELIE CAD Patient: SCOTTIE VENEGAS. Exam Date: 02/06/2023 : 1965 Gender:F Ordering : DR PRESLEY FRANCO . Admission #: [id number] Family : Order #: [id number] CLICK HERE TO VIEW EXAM RADIOLOGY REPORT PROCEDURE: MAMMOGRAM SCREENING 3D BILATERAL CAD COMPARISON: None. INDICATIONS: Screening mammography Calculator Name NCI Breast Cancer Risk Assessment Tool 5 Year Breast Cancer Risk 0.90% Lifetime Breast Cancer Risk 4.90% Personal Breast Cancer No Personal Ovarian Cancer No Treatments None Family Cancers None LOCATION: [facility] BREAST COMPOSITION: Scattered areas fibroglandular density. [...] MD on 02/06/2023 at 10:08 Normal [facility] INSULINon 2023 Insulin 9.3 uIU/mL Normal 2.6-24.9 [facility] Comment on above: Performed By: #### I NSULIN #### [facility] [address] [place] [address] Dr. Ladi Hernandez OCC BLD IMMUNO SCREENon 01-21 OCCULT BLOOD Negative Normal NEGATIVE [facility] Comment on above: Performed By: #### O BSCRN ####[facility] [id number] [place] [address]Dr. Ladi Hernandez CBC AUTO DIFFon 02-02-2023 BASO # 0.0 103/ul Normal 0.0-0.1 [facility] Comment on above: Performed By: #### C BC #### [facility] [address] [place] [address] Dr. Ladi Hernandez Basophils/100 WBC (Bld) 0.7 % Normal 0.2-2.0 [facility] Comment on above: Performed By: #### C BC #### [facility] [address] [place] [address] Dr. Ladi Hernandez EO # 0.2 103/ul Normal 0.0-0.7 [facility] Comment on above: Performed By: #### C BC #### [facility] [address] [place] [address] Dr. Ladi Hernandez Eosinophils/100 WBC (Bld) 3.1 % Normal 0.9-7.0 [facility] Comment on above: Performed By: #### C BC #### [facility] [address] [place] [address] Dr. Ladi Hernandez Erythrocyte distribution width (RBC) [Ratio] 13.0 % Normal 11.0-15.0 [facility] Comment on above: Performed By: #### C BC #### [facility] [address] [place] [address] Dr. Laid Hernandez Hematocrit (Bld) [Volume fraction] 42.5 % Normal 36.0-48.0 [facility] Comment on above: Performed By: #### C BC #### [facility] [address] [place] [address] Dr. Ladi Hernandez Hemoglobin (Bld) [Mass/Vol] 14.1 g/dL Normal 12.0-16.0 [facility] Comment on above: Performed By: #### C BC #### [facility] [address] [place] [address] Dr. Ladi Hernandez IG # 0.01 10e3/ul Normal 0.00-0.03 [facility] Comment on above: Performed By: #### C BC #### [facility] [address] [place] [address] Dr. Ladi Hernandez IG % 0.2 % Normal 0.0-0.5 [facility] Comment on above: Performed By: #### C BC #### [facility] [address] [place] [address] Dr. Ladi Hernandez LYMPH # 1.8 103/ul Normal 1.2-3.8 [facility] Comment on above: Performed By: #### C BC #### [facility] [address] [place] [address] Dr. Ladi Hernandez Lymphocytes/100 WBC (Bld) 32.0 % Normal 20.5-60.0 [facility] Comment on above: Performed By: #### C BC #### [facility] [address] [place] [address] Dr. Ladi Hernandez MANUAL DIFF REQ NO Normal [facility] Comment on above: Performed By: #### C BC #### [facility] [address] [place] [address] Dr. Ladi Hernandez MCH (RBC) [Entitic mass] 27.2 pg Normal 26.7-34.0 [facility] Comment on above: Performed By: #### C BC #### [facility] [address] [place] [address] Dr. Ladi Hernandez MCHC (RBC) [Mass/Vol] 33.2 g/dL Normal 29.9-35.2 [facility] Comment on above: Performed By: #### C BC #### [facility] [address] [place] [address] Dr. Ladi Hernandez MCV (RBC) [Entitic vol] 81.9 fL Normal 81.0-99.0 [facility] Comment on above: Performed By: #### C BC #### [facility] [address] [place] [address] Dr. Ladi Hernandez MONO # 0.5 103/ul Normal 0.3-0.8 [facility] Comment on above: Performed By: #### C BC #### [facility] [address] [place] [address] Dr. Ladi Hernandez Monocytes/100 WBC (Bld) 8.3 % Normal 1.7-12.0 [facility] Comment on above: Performed By: #### C BC #### [facility] [address] [place] [address] Dr. Ladi Hernandez NEUT # 3.1 103/ul Normal 1.4-6.5 [facility] Comment on above: Performed By: #### C BC #### [facility] [address] [place] [address] Dr. Ladi Hernandez Neutrophils/100 WBC (Bld) 55.7 % Normal 43.0-75.0 [facility] Comment on above: Performed By: #### C BC #### [facility] [address] [address] [address] Ladi Hernandez Platelet mean volume (Bld) [Entitic vol] 10.6 fL Normal 9.5-13.5 [facility] Comment on above: Performed By: #### C BC #### [facility] [address] [place] [address] [address] Ladi Hernandez PLT 271 103/ul Normal 150-450 [facility] Comment on above: Performed By: #### C BC #### [facility] [address] [place] [address] [address] Ladi Hernandez RBC 5.19 106/ul Normal 4.20-5.40 [facility] Comment on above: Performed By: #### C BC #### [facility] [address] [place] [address] [address] Ladi Hernandez WBC 5.6 103/ul Normal 4.0-11.0 [facility] Comment on above: Performed By: #### C BC #### [facility] [address] [place] [address] [address] Ladi Hernandez FREE THYROXINE INDEX T7on FTI 3.73 Normal 1.30-4.50 [facility] Comment on above: Performed By: #### T 7, LIPID, CMP, TSH #### [facility] [address] [address] [address] Ladi Hernandez T3U 33.0 % Normal 30.0-39.0 [facility] Comment on above: Performed By: #### T 7, LIPID, CMP, TSH #### [facility] [address] [address] [address] Ladi Hernandez T4 [Mass/Vol] 11.30 ug/dL Normal 4.80-13.90 [facility] Comment on above: Performed By: #### T 7, LIPID, CMP, TSH #### [facility] [address] [address] [address] Ladi Hernandez GLYCOHEMOGLOBIN A1Con 2022 ADA RECOMMENDATION SEE BELOW Normal [facility] Comment on above: Result Comment: ADA RECOMMENDED LIMIT 4.0 - 6.0 ADA THERAPEUTIC TARGET < 7.0 ACTION SUGGESTED > 7.0 Performed By: #### A 1C #### [facility] [address] [address] [address] Ladi Hernandez Glucose [Mass/Vol] 123 mg/dL Normal [facility] Comment on above: Performed By: #### A 1C #### [facility] [address] [address] [address] Ladi Hernandez HbA1c (Bld) [Mass fraction] 5.9 % Normal 4.5-6.2 [facility] Comment on above: Performed By: #### A 1C #### [facility] [address] [address] [address] Ladi Hernandez IRONon 02-02-2023 Iron [Mass/Vol] 87.0 ug/dL Normal 50.0-170.0 [facility] Comment on above: Performed By: #### V ITAD, IRON #### [facility] [address] [address] [address] Ladi Hernandez LIPID PROFILEon 02-02-2023 CHOL-HDL RATIO NORM SEE BELOW Normal [facility] Comment on above: Result Comment: 3.3 - 4.4 LOW RISK 4.4 - 7.1 AVERAGE RISK 7.1 - 11.0 MODERATE RISK >11.0 HIGH RISK Performed By: #### T 7, LIPID, CMP, TSH ####[facility] [address] [place] [id number]. Ladi Hernandez Cholesterol [Mass/Vol] 305 mg/dL Critically high <=200 [facility] Comment on above: Performed By: #### T 7, LIPID, CMP, TSH ####[facility] [address] [place] [id number]. Ladi Hernandez Cholesterol in HDL [Mass/Vol] 61 mg/dL Critically high 40-60 [facility] Comment on above: Performed By: #### T 7, LIPID, CMP, TSH ####[facility] [address] [place] [id number]. Ladi Hernandez Cholesterol in LDL [Mass/Vol] 221.6 mg/dL Normal [facility] Comment on above: Performed By: #### T 7, LIPID, CMP, TSH ####[facility] [address] [place] [id number]. Ladi Hernandez Cholesterol.total/Ch olesterol in HDL [Mass ratio] 5.0 {ratio} Normal [facility] Comment on above: Performed By: #### T 7, LIPID, CMP, TSH ####[facility] [address] [place], [place] [address]Qf. Ladi Hernandez HDL NORMAL > or = 60 mg/dl - LO W CARDIOVASCULAR RISK <40 mg/dl - HIGH CARDIOVASCULAR RISK Normal [facility] Comment on above: Performed By: #### T 7, LIPID, CMP, TSH ####[facility] [address] [place] [id number]. Ladi Hernandez LDL CALC NORMAL SEE BELOW Normal [facility] Comment on above: Result Comment: <100 mg/dl OPTIMAL 100 - 129 mg/dl NEAR OR ABOVE OPTIMAL 130 - 159 mg/dl BORDERLINE HIGH 160 - 189 mg/dl HIGH >190 mg/dl VERY HIGH Performed By: #### T 7, LIPID, CMP, TSH ####[facility] [address] [place] [id number]. Ladi Hernandez Triglyceride [Mass/Vol] 112 mg/dL Normal <=150 [facility] Comment on above: Performed By: #### T 7, LIPID, CMP, TSH ####[facility] [address] [place] [id number]. Ladi Hernandez VLDL CALC 22.4 mg/dL Normal [facility] Comment on above: Performed By: #### T 7, LIPID, CMP, TSH ####[facility] [address] [place] [id number]. Ladi Hernandez PROF 14(COMP METB)on 023 Albumin [Mass/Vol] 4.1 g/dL Normal 3.4-5.0 [facility] Comment on above: Performed By: #### T 7, LIPID, CMP, TSH #### [facility] [address] [address] [address] Ladi Hernandez Albumin/Globulin [Mass ratio] 1.0 {ratio} Normal [facility] Comment on above: Performed By: #### T 7, LIPID, CMP, TSH #### [facility] [address] [address] [address] Ladi Hernandez ALP [Catalytic activity/Vol] 110 U/L Normal 46-116 [facility] Comment on above: Performed By: #### T 7, LIPID, CMP, TSH #### [facility] [address] [address] [address] Ladi Hernandez ALT [Catalytic activity/Vol] 33 U/L Normal 14-59 [facility] Comment on above: Performed By: #### T 7, LIPID, CMP, TSH #### [facility] [address] [place] [address] Dr. Ladi Hernandez Anion gap [Moles/Vol] 10.3 mmol/L Normal [facility] Comment on above: Performed By: #### T 7, LIPID, CMP, TSH #### [facility] [address] [place] [address] Dr. Ladi Hernandez AST [Catalytic activity/Vol] 22 U/L Normal 15-37 [facility] Comment on above: Performed By: #### T 7, LIPID, CMP, TSH #### [facility] [address] [address] [address] Ladi Hernandez Bilirubin [Mass/Vol] 0.3 mg/dL Normal 0.2-1.0 [facility] Comment on above: Performed By: #### T 7, LIPID, CMP, TSH #### [facility] [address] [address] [address] Ladi Hernandez Calcium [Mass/Vol] 9.8 mg/dL Normal 8.5-10.1 [facility] Comment on above: Performed By: #### T 7, LIPID, CMP, TSH #### [facility] [address] [place] [address] Dr. Ladi Hernandez Chloride [Moles/Vol] 105 mmol/L Normal 98-107 [facility] Comment on above: Performed By: #### T 7, LIPID, CMP, TSH #### [facility] [address] [address] [address] Ladi Hernandez CO2 [Moles/Vol] 29.1 mmol/L Normal 21.0-32.0 [facility] Comment on above: Performed By: #### T 7, LIPID, CMP, TSH #### [facility] [address] [address] [address] Ladi Hernandez Creatinine [Mass/Vol] 0.62 mg/dL Normal 0.55-1.02 [facility] Comment on above: Performed By: #### T 7, LIPID, CMP, TSH #### [facility] [address] [place] [address] Dr. Ladi Hernandez EGFR-AF CAMBODIAN >60 Normal >=60 [facility] Comment on above: Performed By: #### T 7, LIPID, CMP, TSH #### [facility] [address] [address] [address] Ladi Hernandez EGFR-NON AF CAMBODIAN >60 Normal >=60 [facility] Comment on above: Performed By: #### T 7, LIPID, CMP, TSH #### [facility] [address] [place] [address] Dr. Ladi Hernandez Globulin (S) [Mass/Vol] 4.0 g/dL Normal [facility] Comment on above: Performed By: #### T 7, LIPID, CMP, TSH #### [facility] [address] [address] [address] Ladi Hernandez Glucose [Mass/Vol] 104 mg/dL Normal 74-106 [facility] Comment on above: Performed By: #### T 7, LIPID, CMP, TSH #### [facility] [address] [address] [address] Ladi Hernandez Potassium [Moles/Vol] 4.4 mmol/L Normal 3.5-5.1 [facility] Comment on above: Performed By: #### T 7, LIPID, CMP, TSH #### [facility] [address] [place] [address] Dr. Ladi Hernandez Protein [Mass/Vol] 8.1 g/dL Normal 6.4-8.2 [facility] Comment on above: Performed By: #### T 7, LIPID, CMP, TSH #### [facility] [address] [address] [address] Ladi Hernandez Sodium [Moles/Vol] 140 mmol/L Normal 136-145 [facility] Comment on above: Performed By: #### T 7, LIPID, CMP, TSH #### [facility] [address] [address] [address] Ladi Hernandez Urea nitrogen [Mass/Vol] 17.0 mg/dL Normal 7.0-18.0 [facility] Comment on above: Performed By: #### T 7, LIPID, CMP, TSH #### [facility] [address] [address] [address] Ladi Hernandez Urea nitrogen/Creatinine [Mass ratio] 27.4 mg/mg Normal [facility] Comment on above: Performed By: #### T 7, LIPID, CMP, TSH #### [facility] [address] [address] [address] Ladi Hernandez TSHon 02-02-2023 TSH 1.137 uIU/mL Normal 0.358-3.740 [facility] Comment on above: Performed By: #### T 7, LIPID, CMP, TSH ####[facility] [address] [place] [address]Dr. Ladi Hernandez VITAMIN D 25 OHon 02-02-2023 VIT D 25-OH 36.1 ng/mL Normal [facility] Comment on above: Performed By: #### V ITAD, IRON #### [facility] [address] [address] [address] Ladi Hernandez VIT D RANGES SEE BELOW Normal [facility] Comment on above: Result Comment: <20 ng/mL Vit D deficient 20 - <30 ng/mL Vit D insufficient 30 - 100 ng/mL Vit D sufficient >100 ng/mL Potential Toxicity Performed By: #### V ITAD, IRON #### [facility] [address] [address] [address] CHEST WO CONon [...] by: JEREMIAS RUBIN Date: 2023-01-23 10:38 Normal [facility] Consent for COVID Vaccineon 2021 SARS-CoV-2 (COVID-19) RNA OSMANY+probe Ql (Unsp spec) [id number]#1. 00CD:127 Normal [facility] Consent for COVID Vaccineon 01-09-2021 SARS-CoV-2 (COVID-19) RNA OSMANY+probe Ql (Unsp spec) [id number]. 00CD:127 Normal [facility] Consent for Treatmenton 12-22 Consent for Treatment [id number]#1. 00CD:127 [facility] Coding Summary.on 01-06-2021 Coding Summary. CODING DATE: 01/06/2021 FINAL [facility] STATUS: PAYOR: Vj APC DESCRIPTION 1492 New [...] Date Saved: 01/06/2021 06:04 pm [facility] Encounters Encounter Date Encounter Type Care Provider Facility Start: 02-13-2023 End: 02-14-[address] PRESLEY FRANCO . Facility:[facility] Start: 02-08-2023 Encounter for genera l adult medical examination without abnormal findings DR PRESLEY FRANCO . [facility] Start: 02-06-2023 End: 02-07-[address] [...] Facility:[facility] Payers Date Payer Category Payer Unknown [id number] 2.16.84 [id number] 1965 Unknown [id number] 2.16.84 [id number] 1965 Unknown [id number] 2.16.84 [id number] 1965 Unknown [id number] 2.16.84 [id number] 1965 Unknown [id number] 2.16.84 [id number] 1961 Unknown [id number] Summary Purpose Family History No Family History Records FoundNo Family History Records Found Advance Directives No Advanced Directives Records FoundNo Advanced Directives Records Found Additional Source Comments INFORMATION SOURCE (unrecogn ized section and content) DATE CREATED AUTHOR 04/24/2021 [facility] DATE CREATED AUTHOR AUTHOR'S JENNIFER ZAVALA 02/18/2023 [facility] FOR RECORDS PERTAINING TO PATIENTS WHO ARE [...] BE BASED ON THE PRIMARY CLINICAL RECORDS. [facility] [employer] provides no warranty or guarantee of the accuracy or completeness of information in this document.
== END 2025-03-24 06:58 | disposition home or self-care (01) ==
LOC: NM 06:57
PROVIDERS: PCP Family Medicine; Visit Provider Family Medicine
DX: M54.9 Dorsalgia, unspecified (principal)
CPT/HCPCS: 78227; A9537